=== PATIENT | female | born 1975 | race African-American/Black ===

== ENCOUNTER → 2017-12-24 07:54 | Outpatient (CLI) | payer OTHER, MEDICAID, SELFPAY ==
--- NOTE | 2017-12-24 | DI.MG.S_ITS ---
BILATERAL DIGITAL SCREENING MAMMOGRAM 3D/2D WITH CAD: 12/24/2017 CLINICAL: Routine screening. Comparison is made to exams dated: 12/16/2016 mammogram and 07/24/2015 mammogram - [facility]. The tissue of both breasts is heterogeneously dense. This may lower the sensitivity of mammography. Current study was also evaluated with a Computer Aided Detection (CAD) system. No significant masses, calcifications, or other findings are seen in either breast. There has been no significant interval change. IMPRESSION: NEGATIVE There is no mammographic evidence of malignancy. A 1 year screening mammogram is recommended.(12/25/2018) This exam was interpreted at Station ID: [id number]. NOTE: For mammograms, a report in lay terms will be sent to the patient. Approximately 15% of breast malignancies will not be visualized mammographically. In the management of a palpable breast mass, a negative mammogram must not discourage biopsy of a clinically suspicious lesion. Electronically Signed By: Christian regan/shirley:12/24/2017 11:58:35 copy to: Harjeet Garcia letter sent: Normal Exam ACR BI-RADS Category 1: Negative [id number]
== END ==
DX: Z12.31 Encounter for screening mammogram for malignant neoplasm of breast (principal)
CPT/HCPCS: 77063; 77067

== ENCOUNTER → 2018-04-05 09:56 | Outpatient (CLI) | payer OTHER, MEDICAID, SELFPAY | DX: N95.1 Menopausal and female climacteric states (principal) | CPT/HCPCS: 36415; 83001 ==

== ENCOUNTER → 2018-04-21 09:09 | Outpatient (CLI) | payer OTHER, MEDICAID, SELFPAY ==
[2018-04-21 10:09] LABS: Thyroid Stimulating Hormone 6.17 uIU/mL (0.47-4.68)
== END ==
DX: N92.1 Excessive and frequent menstruation with irregular cycle (principal)
CPT/HCPCS: 36415; 84443

== ENCOUNTER → 2018-07-09 11:51 | Outpatient (CLI) | payer OTHER, MEDICAID, SELFPAY ==
[2018-07-09 13:24] LABS: Free T4, Direct Thyroxine 1.06 ng/dL (0.78-2.19)
[2018-07-09 13:38] LABS: Thyroid Stimulating Hormone 1.09 uIU/mL (0.47-4.68)
== END ==
DX: E03.9 Hypothyroidism, unspecified (principal)
CPT/HCPCS: 36415; 84439; 84443

== ENCOUNTER → 2019-01-06 08:18 | Outpatient (CLI) | payer OTHER, MEDICAID, SELFPAY ==
--- NOTE | 2019-01-06 | DI.MG.S_ITS ---
BILATERAL DIGITAL SCREENING MAMMOGRAM 3D/2D WITH CAD: 01/06/2019 CLINICAL: Routine screening. Comparison is made to exams dated: 12/24/2017 mammogram, 12/16/2016 mammogram, and 07/24/2015 mammogram - [facility]. The tissue of both breasts is heterogeneously dense. This may lower the sensitivity of mammography. Current study was also evaluated with a Computer Aided Detection (CAD) system. No significant masses, calcifications, or other findings are seen in either breast. There has been no significant interval change. IMPRESSION: NEGATIVE There is no mammographic evidence of malignancy. A 1 year screening mammogram is recommended. This exam was interpreted at Station ID: [id number]. NOTE: For mammograms, a report in lay terms will be sent to the patient. Approximately 15% of breast malignancies will not be visualized mammographically. In the management of a palpable breast mass, a negative mammogram must not discourage biopsy of a clinically suspicious lesion. Electronically Signed By: Kiley robbins/shirley:01/06/2019 09:10:21 copy to: TOY TAMAYO letter sent: Normal Exam ACR BI-RADS Category 1: Negative [id number]
== END ==
PROVIDERS: PCP Family Medicine
DX: Z12.31 Encounter for screening mammogram for malignant neoplasm of breast (principal)
CPT/HCPCS: 77063; 77067

== ENCOUNTER → 2019-03-29 11:23 | Outpatient (CLI) | payer OTHER, MEDICAID, SELFPAY ==
[2019-03-29 12:37] LABS: Thyroid Stimulating Hormone 0.23 uIU/mL (0.47-4.68)
== END ==
PROVIDERS: Family Provider Family Medicine; PCP Family Medicine
DX: N91.2 Amenorrhea, unspecified (principal)
CPT/HCPCS: 36415; 84443

== ENCOUNTER → 2019-04-11 09:41 | Outpatient (CLI) | payer OTHER, MEDICAID, SELFPAY ==
[2019-04-11 10:51] LABS: Add Manual Diff / Slide Review NO; Basophils Absolute Auto 0 /uL (0-100); Basophils Percent Auto 1.1 % (0-2); Eosinophils Absolute Auto 100 /uL (0-450); Eosinophils Percent Auto 1.3 % (2-4); Hematocrit 32.2 % (36-46); Hemoglobin 10.5 g/dL (12.0-16.0); Lymphocytes Absolute Auto 900 /uL (1100-4500); Lymphocytes Percent Auto 22.3 % (25-40); Mean Corpuscular HGB Conc 32.6 % (30-36); Mean Corpuscular Hemoglobin 26.3 PG (26-34); Mean Corpuscular Volume 80.6 fL (80-100); Monocytes Absolute Auto 300 /uL (0-900); Neutrophils Absolute Auto 2600 /uL (1500-7000); Neutrophils Percent Auto 67.3 % (50-75); Platelet Count 359 X10^3/uL (150-400); Red Blood Cell Count 3.99 X10^6/uL (4.0-5.2); Red Cell Distribution Width 15.9 % (11.6-14.8); White Blood Cell Count 3.9 X10^3/uL (4.5-11.0)
[2019-04-11 11:38] LABS: Free T3, Triiodothyronine Free 2.75 pg/mL (2.77-5.27)
[2019-04-11 11:39] LABS: Free T4, Direct Thyroxine 0.78 ng/dL (0.78-2.19)
[2019-04-11 11:47] LABS: Ferritin 5.5 ng/mL (6.27-137)
== END ==
PROVIDERS: Family Provider Family Medicine; PCP Family Medicine
DX: E03.9 Hypothyroidism, unspecified (principal); N92.1 Excessive and frequent menstruation with irregular cycle
CPT/HCPCS: 36415; 82728; 84439; 84481; 85025

== ENCOUNTER → 2019-05-07 11:53 | Outpatient (CLI) | payer OTHER, MEDICAID, SELFPAY ==
[2019-05-07 13:03] LABS: Alanine Aminotransferase 13 IU/L (<35); Albumin 4.4 g/dL (3.5-5.0); Albumin Globulin Ratio 1.4 (1.0-2.8); Alkaline Phosphatase 56 U/L (38-126); Aspartate Aminotransferase 18 IU/L (14-36); Bilirubin Total 0.5 mg/dL (0.2-1.3); Bilirubin Unconjugated 0.6 mg/dL (0.0-1.1); Globulin 3.1 g/dL (1.7-4.1); HEMOLYSIS < 15 (0-50); Total Protein 7.5 g/dL (6.3-8.2)
== END ==
PROVIDERS: Family Provider Family Medicine; PCP Family Medicine; Referring Provider Family Medicine; Visit Provider Family Medicine
DX: R10.13 Epigastric pain (principal)
CPT/HCPCS: 36415; 80076

== ENCOUNTER → 2019-05-14 11:47 | Outpatient (CLI) | payer OTHER, MEDICAID, SELFPAY ==
[2019-05-14 12:00] LABS: Bacteria Urine None Seen; RBC Urine None Seen (0-5/HPF); WBC Urine None Seen (0-5/HPF)
[2019-05-14 12:23] LABS: Appearance Urine UA CLEAR; Bilirubin Urine UA NEGATIVE (NEGATIVE); Color Urine UA YELLOW; Glucose Urine UA NEGATIVE (Negative); Ketones Urine UA NEGATIVE (NEGATIVE); Leukocyte Esterase Urine UA NEGATIVE (NEGATIVE); Nitrite Urine UA NEGATIVE (Negative); Occult Blood Urine UA NEGATIVE (Negative); Protein Urine UA NEGATIVE (Negative); Urobilinogen Urine UA 0.2 E.U./dL (0.2)
[2019-05-14 12:37] LABS: Culture Indicated Urine Cult Not Indicated; Urine Comments Microscopic Normal
== END ==
PROVIDERS: Family Provider Family Medicine; PCP Family Medicine; Referring Provider Family Medicine; Visit Provider Family Medicine
DX: R35.0 Frequency of micturition (principal)
CPT/HCPCS: 81001

== ENCOUNTER → 2019-09-09 07:40 | Outpatient (CLI) | payer OTHER, MEDICAID, SELFPAY ==
[2019-09-09 08:25] LABS: Add Manual Diff / Slide Review NO; Basophils Absolute Auto 0 /uL (0-100); Basophils Percent Auto 0.8 % (0-2); Eosinophils Absolute Auto 100 /uL (0-450); Eosinophils Percent Auto 1.6 % (2-4); Hematocrit 37.2 % (36-46); Hemoglobin 13.2 g/dL (12.0-16.0); Lymphocytes Absolute Auto 1100 /uL (1100-4500); Lymphocytes Percent Auto 27.7 % (25-40); Mean Corpuscular HGB Conc 35.4 % (30-36); Mean Corpuscular Hemoglobin 32.6 PG (26-34); Mean Corpuscular Volume 92.1 fL (80-100); Monocytes Absolute Auto 400 /uL (0-900); Monocytes Percent Auto 10.1 % (3-14); Neutrophils Absolute Auto 2300 /uL (1500-7000); Neutrophils Percent Auto 59.8 % (50-75); Platelet Count 281 X10^3/uL (150-400); Red Blood Cell Count 4.04 X10^6/uL (4.0-5.2); Red Cell Distribution Width 12.4 % (11.6-14.8); White Blood Cell Count 3.8 X10^3/uL (4.5-11.0)
[2019-09-09 08:41] LABS: HEMOLYSIS < 15 (0-50); Iron 179 ug/dL (37-170)
[2019-09-09 08:52] LABS: Percent Iron Saturation 66 % (15-50); Total Iron Binding Capacity 273 ug/dL (265-497); Transferrin 208 mg/dL (206-381)
[2019-09-09 09:09] LABS: Thyroid Stimulating Hormone 2.51 uIU/mL (0.47-4.68)
[2019-09-09 09:49] LABS: Ferritin 134 ng/mL (6-137)
== END ==
PROVIDERS: Physician Assistant; Family Provider Family Medicine; PCP Family Medicine
DX: N95.1 Menopausal and female climacteric states (principal); E03.9 Hypothyroidism, unspecified; L65.9 Nonscarring hair loss, unspecified
CPT/HCPCS: 36415; 82728; 83001; 83540; 83550; 84443; 85025

== ENCOUNTER → 2020-02-20 06:55 | Outpatient (CLI) | payer OTHER, MEDICAID, SELFPAY ==
[2020-02-20 08:13] LABS: Add Manual Diff / Slide Review NO; Basophils Absolute Auto 0 /uL (0-100); Basophils Percent Auto 0.8 % (0-2); Eosinophils Absolute Auto 100 /uL (0-450); Eosinophils Percent Auto 1.6 % (2-4); Hematocrit 38.3 % (36-46); Lymphocytes Absolute Auto 1200 /uL (1100-4500); Lymphocytes Percent Auto 27.3 % (25-40); Mean Corpuscular HGB Conc 33.9 % (30-36); Mean Corpuscular Hemoglobin 31.4 PG (26-34); Mean Corpuscular Volume 92.6 fL (80-100); Monocytes Absolute Auto 300 /uL (0-900); Monocytes Percent Auto 7.2 % (3-14); Neutrophils Absolute Auto 2800 /uL (1500-7000); Neutrophils Percent Auto 63.1 % (50-75); Platelet Count 309 X10^3/uL (150-400); Red Blood Cell Count 4.13 X10^6/uL (4.0-5.2); Red Cell Distribution Width 12.7 % (11.6-14.8); White Blood Cell Count 4.4 X10^3/uL (4.5-11.0)
[2020-02-20 08:31] LABS: HEMOLYSIS < 15 (0-50); Iron 95 ug/dL (37-170)
[2020-02-20 08:32] LABS: Alanine Aminotransferase 21 IU/L (<35); Albumin 4.1 g/dL (3.5-5.0); Albumin Globulin Ratio 1.2 (1.0-2.8); Alkaline Phosphatase 66 U/L (38-126); Aspartate Aminotransferase 18 IU/L (14-36); BUN Creatinine Ratio 19.1 (6-22); Bilirubin Total 0.7 mg/dL (0.2-1.3); Blood Urea Nitrogen 13 mg/dL (7-17); Carbon Dioxide 30 mmol/L (22-32); Chloride 103 mmol/L (98-107); Estimated Glomerular Filt Rate > 60.0 mL/min (>60); Globulin 3.3 g/dL (1.7-4.1); Glucose 96 mg/dL (70-100); HEMOLYSIS < 15 (0-50); Potassium 3.9 mmol/L (3.4-5.1); Sodium 136 mmol/L (137-145); Total Protein 7.4 g/dL (6.3-8.2)
[2020-02-20 08:42] LABS: Percent Iron Saturation 26 % (15-50); Total Iron Binding Capacity 363 ug/dL (265-497); Transferrin 278 mg/dL (206-381)
[2020-02-20 08:47] LABS: Free T4, Direct Thyroxine 0.95 ng/dL (0.78-2.19)
[2020-02-20 09:06] LABS: Ferritin 13 ng/mL (6-137)
[2020-02-21 07:07] LABS: Thyroid Peroxidase Antibodies 14 IU/mL (0-34); Triiodothyronine T3 Total 146 ng/dL (71-180)
[2020-02-23 13:12] LABS: Estrogen 87 pg/mL (.)
[2020-02-24 05:40] LABS: Triiodothyronine T3 Reverse 13.3 ng/dL (9.2-24.1)
== END ==
PROVIDERS: Family Provider Family Medicine; PCP Family Medicine; Referring Provider Family Medicine; Visit Provider Family Medicine
DX: E03.9 Hypothyroidism, unspecified (principal); R53.83 Other fatigue; D50.9 Iron deficiency anemia, unspecified
CPT/HCPCS: 36415; 80053; 82672; 82728; 83001; 83540; 83550; 84439; 84443; 84480; 84482; 85025; 86376

== ENCOUNTER → 2020-08-04 07:59 | Outpatient (CLI) | payer OTHER, MEDICAID, SELFPAY ==
[2020-08-04 09:41] LABS: C-Reactive Protein Quant < 0.5 mg/dL (<1.0); Cholesterol 164 mg/dL (140-199); HDL Cholesterol 51 mg/dL (40-60); LDL Cholesterol Calculated 99 mg/dL (<100); Triglycerides 72 mg/dL (35-150)
[2020-08-07 17:36] LABS: Lipoprotein (a) 167.8 nmol/L (<75.0)
== END ==
PROVIDERS: Family Provider Family Medicine; PCP Family Medicine; Referring Provider Internal Medicine Interventional Cardiology; Visit Provider Internal Medicine Interventional Cardiology
DX: Z82.49 Family history of ischemic heart disease and other diseases of the circulatory system (principal)
CPT/HCPCS: 36415; 80061; 83695; 86140

== ENCOUNTER → 2020-09-19 07:13 | Outpatient (CLI) | payer OTHER, MEDICAID, SELFPAY ==
--- NOTE | 2020-09-19 07:16 | DI.US.S_ITS ---
PROCEDURE: US PELVIC COMPLETE INDICATIONS: DUB TECHNIQUE: Real-time scanning was performed of the pelvic organs, with image documentation. Additional endovaginal scanning was necessary due to incomplete visualization of the adnexal and endometrial structures by transabdominal scanning. COMPARISON: [facility], , PELVIC COMPLETE, 04/26/2019, 14:16. [facility], , PELVIC COMPLETE, 03/29/2019, 11:15. FINDINGS: Uterus: Uterus is anteverted and normal in size at 5.2 x 7.8 x 11.0 cm. The endometrium measures 14.2 mm in combined thickness. There is a right-sided intramural fibroid measuring 1.5 x 1.8 x 2.0 cm. The cervix appears normal. Ovaries: The left ovary could not be located but the right ovary appears normal measuring 2.2 x 1.2 x 1.4 cm. Other: No pathologic free abdominal or pelvic fluid. IMPRESSION: Normal appearing uterus except for single 2.0 cm maximal dimension fibroid. Nonvisualization of the left ovary, normal appearance of the right ovary. The left ovary could not be seen due bowel gas. Dictated by: Zaid Calzada M.D. on 09/19/2020 at 12:38 Approved by: Zaid Calzada M.D. on 09/19/2020 at 12:40
== END ==
PROVIDERS: Family Provider Family Medicine; PCP Family Medicine; Referring Provider Obstetrics & Gynecology; Visit Provider Obstetrics & Gynecology
DX: N92.0 Excessive and frequent menstruation with regular cycle (principal); N92.1 Excessive and frequent menstruation with irregular cycle; D25.1 Intramural leiomyoma of uterus
CPT/HCPCS: 36415; 76830; 76856; 83001; 83002

== ENCOUNTER → 2022-01-31 11:21 | Outpatient (CLI) | payer OTHER, MEDICAID, SELFPAY ==
[2022-01-31 12:00] LABS: Hematocrit 32.9 % (36-46); Hemoglobin 11.4 g/dL (12.0-16.0)
== END ==
PROVIDERS: Family Provider Family Medicine; PCP Family Medicine; Referring Provider Obstetrics & Gynecology; Visit Provider Obstetrics & Gynecology
DX: D64.9 Anemia, unspecified (principal)
CPT/HCPCS: 36415; 85014; 85018

== ENCOUNTER 2023-07-02 12:24 | Emergency (ER) | payer OTHER, MEDICAID, SELFPAY ==
[2023-07-02 12:41] VITALS: BP 144/86; PULSE 85; RESP 16; TEMP 36.9; O2SAT 100; BMI 28.3
--- NOTE | 2023-07-02 12:46 | DI.RAD.S_ITS ---
PROCEDURE: XR CHEST 1V INDICATIONS: Shortness of breath TECHNIQUE: One view of the chest was acquired. COMPARISON: None. FINDINGS: Surgical changes and devices: None. Lungs and pleura: Lungs are clear. No pleural effusions or pneumothorax. Mediastinum: Mediastinal contours appear normal. Heart size is normal. Bones and chest wall: No suspicious bony lesions. Overlying soft tissues appear unremarkable. IMPRESSION: No acute cardiopulmonary abnormality is seen. Dictated by: Nabil Duran M.D. on 07/02/2023 at 13:30 Approved by: Nabil Duran M.D. on 07/02/2023 at 13:31
[2023-07-02 12:58] LABS: Add Manual Diff / Slide Review NO; Basophils Absolute Auto 0 /uL (0-100); Basophils Percent Auto 0.6 % (0-2); Eosinophils Absolute Auto 0 /uL (0-450); Eosinophils Percent Auto 0.4 % (2-4); Hemoglobin 11.2 g/dL (12.0-16.0); Lymphocytes Absolute Auto 2400 /uL (1100-4500); Lymphocytes Percent Auto 28.2 % (25-40); Mean Corpuscular Hemoglobin 31.5 PG (26-34); Mean Corpuscular Volume 92.6 fL (80-100); Monocytes Absolute Auto 500 /uL (0-900); Monocytes Percent Auto 6.3 % (3-14); Neutrophils Absolute Auto 5400 /uL (1500-7000); Neutrophils Percent Auto 64.5 % (50-75); Platelet Count 346 X10^3/uL (150-400); Red Blood Cell Count 3.56 X10^6/uL (4.0-5.2); Red Cell Distribution Width 13.3 % (11.6-14.8); White Blood Cell Count 8.4 X10^3/uL (4.5-11.0)
[2023-07-02 13:00] LABS: INR 1.5 (0.9-1.3); Prothrombin Time 16.9 SECONDS (9.4-12.5)
[2023-07-02 13:08] LABS: Lactate (Lactic Acid) 3.6 mmol/L (0.7-2.1)
[2023-07-02 13:09] LABS: Alanine Aminotransferase 25 IU/L (<35); Albumin 4.4 g/dL (3.5-5.0); Albumin Globulin Ratio 1.4 (1.0-2.8); Alkaline Phosphatase 78 U/L (38-126); Aspartate Aminotransferase 25 IU/L (14-36); BUN Creatinine Ratio 14.7 (6-22); Bilirubin Total 0.6 mg/dL (0.2-1.3); Blood Urea Nitrogen 10 mg/dL (7-17); Calcium 9.5 mg/dL (8.4-10.2); Carbon Dioxide 24 mmol/L (22-32); Chloride 107 mmol/L (98-107); Estimated Glomerular Filt Rate > 60 mL/min (>60); Globulin 3.2 g/dL (1.7-4.1); Glucose 143 mg/dL (70-100); HEMOLYSIS < 15 (0-50); Potassium 3.1 mmol/L (3.4-5.1); Sodium 138 mmol/L (137-145); Total Protein 7.6 g/dL (6.3-8.2)
[2023-07-02 13:22] LABS: Troponin I < 0.012 ng/mL (0.01-0.034)
--- NOTE | 2023-07-02 13:56 | ED.SOB ---
HPI - SOB/Dyspnea General Chief Complaint: Shortness of Breath/Dyspnea Stated Complaint: Diff breathing,pt dx with PE yesterday. Time Seen by Provider: 07/02/23 12:47 Source: patient and family Mode of arrival: EMS Limitations: no limitations History of Present Illness HPI Narrative: 39-year-old female with history of asthma, hypothyroidism, chronic anemia with seizure disorder as a child no longer requiring medications with recent diagnosis of pulmonary emboli yesterday at [facility] in the emergency department. Patient was discharged home on Eliquis. She has taken dose yesterday as well as this morning. Patient presents with complaint of feeling worse. She states for about a month and a half she has felt unwell, she has a history of chronic anemia was given a hormone patch and iron supplementation through the IV. Patient states about 2 weeks ago is when this occurred started to have vaginal bleeding. Patient states in the last several days started having left arm pain and tingling in his that went up into her chest. She felt like her arms and legs felt like it was hard to walk around she had decreased energy. She states it was worsening yesterday she went to the emergency department and was evaluated and diagnosed with pulmonary emboli. Patient states she had a lot of difficulty sleeping last night felt very anxious, she felt like her heart was pounding loudly in her ears, felt a little lightheaded but did not have any syncope. She describes some left chest discomfort, tingling down her arm as well as cramping of her hands today. Patient describes shortness of breath. She describes nausea and vomiting on and off for the past several weeks. No vomiting. No diarrhea or constipation, no urinary symptoms. She is having some vaginal bleeding which she states has increased in the last 24 hours. Patient states she is on Levoxyl on Eliquis for home medications, she stopped using a hormone patch, she was given a prescription for vaginal estradiol but has not used in the past 2 weeks. She states no prior surgeries. Has allergies to sulfa, fluconazole, ciprofloxacin and topiramate. No tobacco, no alcohol, no recreational drugs. Patient sees primary care at [facility] at [facility]. Related Data Home Medications Medication Instructions Recorded Confirmed Vit B Complex/Vit C/Vit E/Zn 1 tab PO ##0 01/29/12 11/22/20 (#ZINC B.E.C.) Iron (#CHEW-IRON) 27 mg PO ##0 03/19/12 11/22/20 Lysine (#LYSINE) 2 tabs PO QDAY ##0 03/19/12 11/22/20 VITAMIN D (Vitamin D3) 1,000 unit PO QDAY ##0 03/22/12 11/22/20 ascorbic acid (vitamin C) 500 mg 500 mg PO QDAY ##0 03/22/12 11/22/20 tablet qhskanon-jtl-pojo-FA-Ca carb-vit K 1 tab PO DAILY 04/05/18 11/22/20 18 mg iron-400 mcg-500 mg tablet (Women's Multivitamin) thyroid supplement PO 03/29/19 11/22/20 diphenhydramine HCl 12.5 mg/5 mL 12.5 mg PO BEDTIME 04/26/19 11/22/20 oral liquid (Benadryl Allergy) elderberry fruit 0.7 gram-honey 3 ml PO 04/26/19 11/22/20 gram/7.5 mL oral liquid glucosamine sulfate 500 mg tablet 500 mg PO BID 04/26/19 11/22/20 (Glucosamine) Previous Rx's Medication Instructions Recorded naproxen sodium 550 mg tablet 550 mg PO TID Menometrorrhagia #20 04/05/18 tabs metronidazole 0.75 % (37.5 mg/5 1 applicator vaginal BEDTIME 7 03/29/19 gram) vaginal gel (Metrogel days #70 grams Vaginal) progesterone micronized 100 mg 100 mg PO BEDTIME #30 caps 10/02/20 capsule citalopram 20 mg tablet 20 mg PO DAILY #30 tabs 06/11/22 Allergies Allergy/AdvReac Type Severity Reaction Status Date / Time ciprofloxacin [CIPROFLOXACIN] Allergy Unknown Verified 11/22/20 08:30 fluconazole [FLUCONAZOLE] Allergy Unknown Verified 11/22/20 08:30 Sulfa (Sulfonamide Allergy Unknown Verified 11/22/20 08:30 Antibiotics) [SULFA (SULFONAMIDE ANTIBIOTICS)] Review of Systems Review of Systems ROS Unobtainable: All systems reviewed & are unremarkable except as noted in HPI and below Patient History Medical History Vaginal odor Foot pain, bilateral Family History Child Age: 30 Autism Digestive problems Father Age: 77 Diabetes mellitus Mother Age: 83 Heart disease High cholesterol Low blood pressure Anemia Social History Smoking Status: Never smoker Smoking Status: Never smoker alcohol intake frequency: holidays/special occasions only Substance Use Type: does not use Exam Narrative Exam Narrative: GEN: well nourished female, alert and oriented x 3, patient appears to be in mild distress. Patient does appear anxious. HEENT: Atraumatic, pupils are equal round reactive to light, extraocular movements are intact, nares are clear, there is no conjunctival pallor. Throat is clear without any exudates, erythema, tonsillar enlargement or uvular deviation HEART: Regular rate and rhythm without murmur, clicks, rubs. Pulses are equal in upper and lower extremities LUNGS:Lungs clear to auscultation, no wheezes, rales, crackles, chest moves symmetrically, no JVD. No edema bilateral lower extremities. ABD:bowel sounds normal, soft, non-tender, no guarding, rebound, rigidity, no masses noted, no hepatosplenomegaly :No CVA tenderness MSCL: Non-tender, no muscle atrophy, muscles strength 5/5 upper and lower extremities, full range of motion, normal gait NEURO:CN 2-12 intact, sensation normal SKIN: Rash, erythema or other skin changes noted. Initial Vital Signs Initial Vital Signs: Vital Signs Temperature 98.5 F 07/02/23 12:41 Pulse Rate 85 07/02/23 12:41 Respiratory Rate 16 07/02/23 12:41 Blood Pressure 144/86 H 07/02/23 12:41 Pulse Oximetry 100 07/02/23 12:41 Oxygen Delivery Method Room Air 07/02/23 12:41 Course Orders Ordered: ED Orders 07/02/23 12:37 BNP [NT-proBNP (BNP-Adult 18+)] Stat Complete Blood Count AUTO DIFF Stat Comprehensive Metabolic Panel Stat Lactate (Lactic Acid) Stat Prothrombin Time INR Stat Troponin I Stat 07/02/23 12:46 XR chest 1V Stat EKG-12 Lead Stat Measure peak expiratory flow ONCE RT Consult Eval and Treat NOW 07/02/23 14:17 CT angio chest PE protocol Stat 07/02/23 14:52 Trop I [Troponin I] Stat Discontinued Medications Acetaminophen (Acetaminophen 325 Mg Tablet) 975 mg PO NOW ONE Stop: 07/02/23 14:18 Last Admin: 07/02/23 14:28 Dose: 975 mg Documented By: RYAN Potassium Chloride (Potassium Chloride 20 Meq Tab) 40 meq PO NOW ONE Stop: 07/02/23 14:18 Last Admin: 07/02/23 14:28 Dose: 40 meq Documented By: RYAN Vital Signs Vital signs: Vital Signs - 8 hr 07/02/23 12:41 07/02/23 15:30 07/02/23 16:00 Temperature 98.5 F Pulse Rate 85 78 77 Respiratory Rate 16 19 18 Blood Pressure 144/86 H Pulse Oximetry 100 99 100 Oxygen Delivery Method Room Air 07/02/23 16:36 Temperature 98.4 F Pulse Rate 87 Respiratory Rate 16 Blood Pressure 123/65 Pulse Oximetry 100 Oxygen Delivery Method MDM - SOB/Dyspnea Lab Data 07/02/23 12:37 07/02/23 12:37 Labs: Lab Results 07/02/23 07/02/23 07/02/23 Range/Units 12:37 12:37 14:52 WBC 8.4 (4.5-11.0) X10^3/uL RBC 3.56 L (4.0-5.2) X10^6/uL Hgb 11.2 L (12.0-16.0) g/dL Hct 33.0 L (36-46) % MCV 92.6 (80-100) fL MCH 31.5 (26-34) PG MCHC 34.0 (30-36) % RDW 13.3 (11.6-14.8) % Plt Count 346 (150-400) X10^3/uL Neut % (Auto) 64.5 (50-75) % Lymph % (Auto) 28.2 (25-40) % [place] % (Auto) 6.3 (3-14) % Eos % (Auto) 0.4 L (2-4) % Baso % (Auto) 0.6 (0-2) % Neut # (Auto) 5400 (1142-9704) /uL Lymph # (Auto) 2400 (6398-2643) /uL [place] # (Auto) 500 (0-900) /uL Eos # (Auto) 0 (0-450) /uL Baso # (Auto) 0 (0-100) /uL PT 16.9 H (9.4-12.5) SECONDS INR 1.5 H (0.9-1.3) Sodium 138 (137-145) mmol/L Potassium 3.1 L (3.4-5.1) mmol/L Chloride 107 (98-107) mmol/L Carbon Dioxide 24 (22-32) mmol/L BUN 10 (7-17) mg/dL Creatinine 0.68 (0.52-1.04) mg/dL Estimated GFR > 60 (>60) mL/min BUN/Creatinine Ratio 14.7 (6-22) Glucose 143 H (70-100) mg/dL Lactate 3.6 H 1.1 (0.7-2.1) mmol/L Calcium 9.5 (8.4-10.2) mg/dL Total Bilirubin 0.6 (0.2-1.3) mg/dL AST 25 (14-36) IU/L ALT 25 (<35) IU/L Alkaline Phosphatase 78 (38-126) U/L Troponin I < 0.012 < 0.012 (0.01-0.034) ng/mL NT-Pro-B Natriuret Pep Cancelled < 20 Total Protein 7.6 (6.3-8.2) g/dL Albumin 4.4 (3.5-5.0) g/dL Globulin 3.2 (1.7-4.1) g/dL Albumin/Globulin Ratio 1.4 (1.0-2.8) Imaging Data Chest x-ray: Radiologist's Impression: [address] [address] XRay Report Signed Patient: Maritza Moser MR#: [id number] : 1975 Acct:[id number] Age/Sex: 47 / F Date of Service: 07/02/23 Loc: ED Accession Number: [id number] Procedure: XR chest 1V Ordering Provider: Christine Napier D.O. PROCEDURE: XR CHEST 1V INDICATIONS: Shortness of breath TECHNIQUE: One view of the chest was acquired. COMPARISON: None. FINDINGS: Surgical changes and devices: None. Lungs and pleura: Lungs are clear. No pleural effusions or pneumothorax. Mediastinum: Mediastinal contours appear normal. Heart size is normal. Bones and chest wall: No suspicious bony lesions. Overlying soft tissues appear unremarkable. IMPRESSION: No acute cardiopulmonary abnormality is seen. Dictated by: Nabil Duran M.D. on 07/02/2023 at 13:30 Approved by: Nabil Duran M.D. on 07/02/2023 at 13:31 CT scan - chest: Radiologist's Impression: Close Chest CTA (Signed) Bennett Peña - 07/02/23 Chest X-Ray (Signed) Nabil Duran - 07/02/23 Pelvis Ultrasound (Signed) Zaid Calzada - 09/19/20 Mammogram Screening (Signed) Kiley Scott - 01/06/19 DI Result CC 12/17/18 Mammogram Screening (Signed) Christian Flores - 12/24/17 [place] [address] CT Scan Report Signed Patient: Maritza Moser MR#: [id number] : 1975 Acct:[id number] Age/Sex: 47 / F Date of Service: 07/02/23 Loc: ED Accession Number: [id number] Procedure: CT angio chest PE protocol Ordering Provider: Christine Napier D.O. PROCEDURE: CT ANGIO CHEST PE PROTOCOL INDICATIONS: sob, cp, dx PE yesterday at [facility] TECHNIQUE: After the administration of intravenous contrast, 2 mm thick sections acquired from the pulmonary apices to the posterior costophrenic angles. 3-dimensional maximum intensity projection (MIP) coronal and sagittal reformats were then acquired through the thorax. For radiation dose reduction, the following was used: automated exposure control, adjustment of mA and/or kV according to patient size. COMPARISON: [facility], CT, CT ANGIO CHEST PE, 07/01/2023, 17:47. FINDINGS: Image quality: Diagnostic. Pulmonary arteries: Unchanged. Again noted is a small segmental right lower lobe pulmonary embolus. No additional acute pulmonary emboli. Lower Neck: No enlarged lymph nodes. Thyroid: No thyroid nodules which require sonographic follow up, per consensus guidelines. Axillae: No enlarged lymph nodes. Chest Wall: Unremarkable. Bones: Unremarkable. Lungs and Pleura: No pneumothorax or pleural effusions. No consolidation or suspicious nodules. Heart: Heart size is normal. No pericardial effusion. Thoracic Vessels: No aortic aneurysm. Mediastinum and Joyce: No enlarged lymph nodes. Esophagus: No wall thickening. No hiatal hernia. Upper Abdomen: Visualized upper abdomen solid organs and bowel loops appear normal. IMPRESSION: Stable findings. Small distal right segmental branch pulmonary embolus. No additional pulmonary emboli have occurred that are identifiable on this study. Lungs are otherwise clear. Dictated by: Bennett Peña M.D. on 07/02/2023 at 15:32 Approved by: Bennett Peña M.D. on 07/02/2023 at 15:36 ECG Data Attestation: I personally reviewed and interpreted this ECG as follows: Interpretation: Sinus rhythm rate 81 SD 176 QRS 82 QTC [address] elevation, 1 mm depression lateral leads no elevation. No S1 Q 3 T3. Patient does not have any priors available at our facility. Patient EKG somewhat poor quality secondary to faxing for her [facility] but overall appears similar to today MDM Narrative Medical decision making narrative: 47-year-old female with recent diagnosis of pulmonary emboli at [facility] who presents with a complaint of increase left-sided chest discomfort that recurred today left arm tingling and numbness, cramping in her hands, generalized weakness. No syncope. Chest pain is not present currently she does note that she feels very anxious. She was able to take her Eliquis today and fill it without any issues and had a dose last night as well. Patient was recently started on estrogen patch which may have increased her risk she does not have a lot of other known risk factors for pulmonary emboli. Labs show hemoglobin of 11.2 was 11.4 in 2021, patient's white count 8.4 with platelets of 346. INR is 1.5 likely elevated secondary to Eliquis. CMP shows a potassium of 3.1 this is down from yesterday at 3.5, creatinine is appropriate 0.68, sodium is 138 with otherwise normal electrolytes besides potassium, patient's lactate is 3.6 initially, repeat has improved to 1.1 Troponin was negative, troponin was repeated at 2nd hour and is negative. BNP is less than 20 Chest x-ray shows no acute change. CT angio chest yesterday at [facility] shows several filling defects in the distal segmental branches predominantly right lower lobe no right heart strain, no enlarged lymph nodes otherwise normal heart size no pericardial effusion. Lungs were otherwise clear. Patient has also had abdominal ultrasound which showed hyperechoic liver texture somewhat coarse consistent with fatty infiltrate, no gallbladder disease no renal now mildly reason for right upper quadrant pain. Patient also had bilateral DVT studies which showed no DVTs in bilateral extremities. CT angio was repeated today, shows distal segmental branch right sided PE without any new pulmonary emboli. PESI score is 48, class 1. Patient had ambulatory pulse ox without any tachycardia or hypoxia. Patient is felt safe for discharge. She feels improved here in the department. Discussed needs follow-up to make sure potassium is appropriate, that she is continuing to improve. She did note some vaginal bleeding that started before she was on Eliquis, has had a little bit today if persisting would need rechecked. She had stopped her estrogen patch 3 or 4 days ago so likely secondary to this. Discussed return precautions all questions answered. Discharge Plan Departure Patient Disposition: Home Clinical Impression: Single subsegmental pulmonary embolism without acute cor pulmonale Activity Restrictions/Additional Instructions: Your workup today does show a distal right segmental branch pulmonary embolus or blood clot, there are no new blood clots appreciated on your CT today compared to yesterday. Your lab workup not show any changes or stress to your heart. Your labs did show low potassium, this was replaced orally. I would recommend having a recheck in the next 24-48 hours. Your labs show anemia but stable compared to your prior labs. Continue your Eliquis as prescribed. Do not use your hormone replacement therapy or estrogen. It is recommended that you follow up with your physician for further workup. Please return for, new or worsening symptoms, increasing chest pain or shortness of breath, passing out, coughing up blood, vomiting, new swelling of extremities or other new or concerning changes. Prescriptions: No Action Vit B Complex/Vit C/Vit E/Zn (#ZINC B.E.C.) 1 tab PO Qty: 0 Iron (#CHEW-IRON) 27 mg PO Qty: 0 Lysine (#LYSINE) 2 tabs PO QDAY Qty: 0 ascorbic acid (vitamin C) 500 MG tablet 500 mg PO QDAY Qty: 0 VITAMIN D (Vitamin D3) 1,000 unit PO QDAY Qty: 0 metronidazole [Metrogel Vaginal] 0.75 % gel 1 applicator VAG BEDTIME 7 Days Qty: 70 1RF progesterone micronized 100 mg capsule 100 mg PO BEDTIME Qty: 30 12RF ld-mg-vssd-FA-Ca carb-vit K [Women's Multivitamin] 18 mg iron-400 mcg-500 mg tablet 1 tab PO DAILY naproxen sodium 550 mg tablet 550 mg PO TID Qty: 20 3RF citalopram 20 mg tablet 20 mg PO DAILY Qty: 30 12RF thyroid supplement PO glucosamine sulfate [Glucosamine] 500 mg tablet 500 mg PO BID diphenhydramine HCl [Benadryl Allergy] 12.5 mg/5 mL liquid 12.5 mg PO BEDTIME elderberry fruit-honey 0.7-3 gram/7.5 mL liquid PO Referrals: Steven Clark DO [Primary Care Provider] - Stand Alone Forms: Patient Portal/API
--- NOTE | 2023-07-02 14:17 | DI.CT.S_ITS ---
PROCEDURE: CT ANGIO CHEST PE PROTOCOL INDICATIONS: sob, cp, dx PE yesterday at [facility] TECHNIQUE: After the administration of intravenous contrast, 2 mm thick sections acquired from the pulmonary apices to the posterior costophrenic angles. 3-dimensional maximum intensity projection (MIP) coronal and sagittal reformats were then acquired through the thorax. For radiation dose reduction, the following was used: automated exposure control, adjustment of mA and/or kV according to patient size. COMPARISON: [facility], CT, CT ANGIO CHEST PE, 07/01/2023, 17:47. FINDINGS: Image quality: Diagnostic. Pulmonary arteries: Unchanged. Again noted is a small segmental right lower lobe pulmonary embolus. No additional acute pulmonary emboli. Lower Neck: No enlarged lymph nodes. Thyroid: No thyroid nodules which require sonographic follow up, per consensus guidelines. Axillae: No enlarged lymph nodes. Chest Wall: Unremarkable. Bones: Unremarkable. Lungs and Pleura: No pneumothorax or pleural effusions. No consolidation or suspicious nodules. Heart: Heart size is normal. No pericardial effusion. Thoracic Vessels: No aortic aneurysm. Mediastinum and Joyce: No enlarged lymph nodes. Esophagus: No wall thickening. No hiatal hernia. Upper Abdomen: Visualized upper abdomen solid organs and bowel loops appear normal. IMPRESSION: Stable findings. Small distal right segmental branch pulmonary embolus. No additional pulmonary emboli have occurred that are identifiable on this study. Lungs are otherwise clear. Dictated by: Bennett Peña M.D. on 07/02/2023 at 15:32 Approved by: Bennett Peña M.D. on 07/02/2023 at 15:36
[2023-07-02] MEDS: ACETAMINOPHEN 325 MG TABLET 975 MG PO (14:28)
[2023-07-02] MEDS: POTASSIUM CHLORIDE 20 MEQ TAB 40 MEQ PO (14:28)
[2023-07-02 14:29] LABS: Reflexed Lactate in 2 Hours Y
[2023-07-02 14:57] LABS: NT-proBNP (BNP-Adult 18+) < 20 pg/mL (<125)
[2023-07-02 15:30] VITALS: PULSE 78; RESP 19; O2SAT 99
[2023-07-02 15:50] LABS: Lactate 2HR (Lactic Acid Rflx) 1.1 mmol/L (0.7-2.1)
[2023-07-02 16:00] VITALS: PULSE 77; RESP 18; O2SAT 100
[2023-07-02 16:01] LABS: Troponin I < 0.012 ng/mL (0.01-0.034)
--- NOTE | 2023-07-02 16:29 | PC.NURSE ---
worsening sob; numbness/tingling in arms and legs.
[2023-07-02 16:36] VITALS: BP 123/65; PULSE 87; RESP 16; TEMP 36.9; O2SAT 100
--- NOTE | 2023-07-02 16:47 | PC.NURSE ---
REASSESS; NO CHANGE. PT STATES SHE HAS NOT MISSED A DOSE OF BLOOD THINNER
== END 2023-07-02 16:48 | disposition home or self-care (01) ==
PROVIDERS: Emergency Provider Emergency Medicine; Family Provider Family Medicine; PCP Family Medicine
DX: I26.93 Single subsegmental thrombotic pulmonary embolism without acute cor pulmonale (principal); Z79.01 Long term (current) use of anticoagulants
CPT/HCPCS: 71045; 71275; 80053; 83605; 83880; 84484; 85025; 85610; 93005; 93010; 99283; 99284

== ENCOUNTER 2023-09-18 09:09 | Emergency (ER) | payer OTHER, MEDICAID, SELFPAY ==
[2023-09-18] VITALS (8 sets, daily range): BP systolic 112–148; BP diastolic 63–91; PULSE 69–85; RESP 17–27; TEMP 37; O2SAT 95–99; BMI 28.7
--- NOTE | 2023-09-18 09:25 | EKG_ITS ---
[address] [address] Test Date: 2023-09-18 Pat Name: Maritza Moser Department: Room: Gender: Female Annual Giving Officer: BRISA : 1975 Requested By: Order Number: [id number] Reading MD: Dionicio Armendariz Measurements Intervals [place] Rate: 80 P: 43 PA: 128 QRS: 30 QRSD: 80 T: 44 QT: 400 QTc: 461 Interpretive Statements Normal sinus rhythm Electronically Signed On 09-20-2023 9:44:14 PDT by Dionicio Armendariz
--- NOTE | 2023-09-18 09:42 | ED.ARRPALP ---
HPI - Arrhythmia/Palpitations General Chief Complaint: Arrhythmia/Palpitations Stated Complaint: heart racing, off meds t-3 Time Seen by Provider: 09/18/23 09:16 Source: patient Mode of arrival: Ambulatory History of Present Illness HPI narrative: Patient is a 47-year-old female. Earlier this year she was diagnosed with a pulmonary embolism. The thought was that this was going to just because she was started on control. She has been on apixaban. She also has quite a bit of anxiety. 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 She has been off of all of her medicines for the past 3 days. She states that yesterday she was somewhat anxious about her procedure today but had no chest pain or shortness of breath. Last evening she felt like she was having episodes of her heart racing. This was associated with some shortness of breath and chest discomfort. She stated that this morning she woke up and was not having those symptoms but was somewhat anxious. She contacted the surgeon's office who canceled her surgery this morning advised she come to the emergency department for evaluation. Here in the ER she denies chest pain, shortness of breath, palpitations. She was still somewhat anxious. She was also having some vague left leg pain last evening that has now resolved. Related Data Home Medications Medication Instructions Recorded Confirmed Vit B Complex/Vit C/Vit E/Zn 1 tab PO ##0 01/29/12 11/22/20 (#ZINC B.E.C.) Iron (#CHEW-IRON) 27 mg PO ##0 03/19/12 11/22/20 Lysine (#LYSINE) 2 tabs PO QDAY ##0 03/19/12 11/22/20 VITAMIN D (Vitamin D3) 1,000 unit PO QDAY ##0 03/22/12 11/22/20 ascorbic acid (vitamin C) 500 mg 500 mg PO QDAY ##0 03/22/12 11/22/20 tablet elrhlaca-nvs-qicq-FA-Ca carb-vit K 1 tab PO DAILY 04/05/18 11/22/20 18 mg iron-400 mcg-500 mg tablet (Women's Multivitamin) diphenhydramine HCl 12.5 mg/5 mL 12.5 mg PO BEDTIME 04/26/19 11/22/20 oral liquid (Benadryl Allergy) elderberry fruit 0.7 gram-honey 3 ml PO 04/26/19 11/22/20 gram/7.5 mL oral liquid glucosamine sulfate 500 mg tablet 500 mg PO BID 04/26/19 11/22/20 (Glucosamine) apixaban 5 mg tablet 5 mg PO BID 09/08/23 09/08/23 levothyroxine 50 mcg tablet 50 mcg PO DAILY 09/08/23 09/08/23 (Levoxyl) minoxidil 2.5 mg tablet 2.5 mg PO DAILY 09/08/23 09/08/23 Previous Rx's Medication Instructions Recorded metronidazole 0.75 % (37.5 mg/5 1 applicator vaginal BEDTIME 7 03/29/19 gram) vaginal gel (Metrogel days #70 grams Vaginal) Allergies Allergy/AdvReac Type Severity Reaction Status Date / Time ciprofloxacin [CIPROFLOXACIN] Allergy Unknown Verified 09/08/23 08:27 fluconazole [FLUCONAZOLE] Allergy Unknown Verified 09/08/23 08:27 Sulfa (Sulfonamide Allergy Unknown Verified 09/08/23 08:27 Antibiotics) [SULFA (SULFONAMIDE ANTIBIOTICS)] Review of Systems Review of Systems Narrative: See HPI Patient History Medical History Pulmonary embolism (07/01/23) Vaginal odor Foot pain, bilateral Family History Child Age: 30 Autism Digestive problems Father Age: 77 Diabetes mellitus Mother Age: 83 Heart disease High cholesterol Low blood pressure Anemia Social History household members: spouse Smoking Status: Never smoker alcohol intake: current Smoking Status: Never smoker alcohol intake frequency: holidays/special occasions only Substance Use Type: does not use Exam Initial Vital Signs Initial Vital Signs: Vital Signs Pulse Rate 84 09/18/23 09:16 Pulse Oximetry 99 09/18/23 09:16 Const General: cooperative, comfortable and No ill appearing HENMT Head: normal to inspection and normocephalic Resp Effort & Inspection: normal respiratory effort Auscultation: clear to auscultation bilaterally Cardio Rate: regular rate Rhythm: regular rhythm GI Inspection: normal to inspection and non-distended Skin General: no rashes or lesions noted Neuro General: patient alert, patient awake and moves all extremities Extrem General: normal to inspection and capillary refill normal Course Orders Ordered: ED Orders 09/18/23 09:18 EKG-12 Lead Stat 09/18/23 09:43 CT angio chest PE protocol Stat 09/18/23 09:55 Complete Blood Count AUTO DIFF Stat Comprehensive Metabolic Panel Stat Lipase Stat Magnesium Stat PTT Partial Thromboplastin Ant Stat Prothrombin Time INR Stat Vital Signs Vital signs: Vital Signs - 8 hr 09/18/23 09:16 09/18/23 09:21 09/18/23 09:28 Temperature 98.6 F Pulse Rate 84 85 Respiratory Rate 22 Blood Pressure 148/91 H 134/77 Pulse Oximetry 99 99 Oxygen Delivery Method Room Air 09/18/23 09:28 09/18/23 09:30 09/18/23 09:30 Temperature Pulse Rate 79 79 Respiratory Rate 25 H 22 Blood Pressure 128/78 Pulse Oximetry 98 95 Oxygen Delivery Method 09/18/23 10:00 09/18/23 10:00 Temperature Pulse Rate 71 Respiratory Rate 27 H Blood Pressure 135/81 Pulse Oximetry 98 Oxygen Delivery Method MDM - Arrhythmia/Palpitations Lab Data Attestation: I reviewed the patient's lab results. 09/18/23 09:55 09/18/23 09:55 Labs: Lab Results 09/18/23 Range/Units 09:55 WBC 7.1 (4.5-11.0) X10^3/uL RBC 4.33 (4.0-5.2) X10^6/uL Hgb 12.8 (12.0-16.0) g/dL Hct 38.8 (36-46) % MCV 89.4 (80-100) fL MCH 29.6 (26-34) PG MCHC 33.2 (30-36) % RDW 13.9 (11.6-14.8) % Plt Count 325 (150-400) X10^3/uL Neut % (Auto) 83.9 H (50-75) % Lymph % (Auto) 10.8 L (25-40) % [place] % (Auto) 4.4 (3-14) % Eos % (Auto) 0.2 L (2-4) % Baso % (Auto) 0.7 (0-2) % Neut # (Auto) 6000 (9179-1336) /uL Lymph # (Auto) 800 L (8354-3911) /uL [place] # (Auto) 300 (0-900) /uL Eos # (Auto) 0 (0-450) /uL Baso # (Auto) 100 (0-100) /uL PT 13.0 H (9.4-12.5) SECONDS INR 1.1 (0.9-1.3) APTT 34 (25.1-36.5) SECONDS Sodium 140 (137-145) mmol/L Potassium 3.4 (3.4-5.1) mmol/L Chloride 108 H (98-107) mmol/L Carbon Dioxide 24 (22-32) mmol/L BUN 9 (7-17) mg/dL Creatinine 0.69 (0.52-1.04) mg/dL Estimated GFR > 60 (>60) mL/min BUN/Creatinine Ratio 13.0 (6-22) Glucose 127 H (70-100) mg/dL Calcium 8.8 (8.4-10.2) mg/dL Magnesium 2.2 (1.6-2.3) mg/dL Total Bilirubin 0.4 (0.2-1.3) mg/dL AST 32 (14-36) IU/L ALT 33 (<35) IU/L Alkaline Phosphatase 73 (38-126) U/L Total Protein 7.8 (6.3-8.2) g/dL Albumin 4.5 (3.5-5.0) g/dL Globulin 3.3 (1.7-4.1) g/dL Albumin/Globulin Ratio 1.4 (1.0-2.8) Lipase 64 (23-300) U/L Imaging Data CT scan - chest: Radiologist's Impresson: PROCEDURE: CT ANGIO CHEST PE PROTOCOL INDICATIONS: Chest pain, shortness of breath, tachycardia TECHNIQUE: After the administration of intravenous contrast, 2 mm thick sections acquired from the pulmonary apices to the posterior costophrenic angles. 3-dimensional maximum intensity projection (MIP) coronal and sagittal reformats were then acquired through the thorax. For radiation dose reduction, the following was used: automated exposure control, adjustment of mA and/or kV according to patient size. COMPARISON: [facility], CT, CT ANGIO CHEST PE PROTOCOL, 07/02/2023, 14:32. FINDINGS: Image quality: Diagnostic. Pulmonary arteries: Pulmonary arteries are normal in size, and demonstrate no intraluminal filling defects to suggest central pulmonary embolism. Lower Neck: No enlarged lymph nodes. Thyroid: No thyroid nodules which require sonographic follow up, per consensus guidelines. Axillae: No enlarged lymph nodes. Chest Wall: Unremarkable. Bones: Unremarkable. Lungs and Pleura: No pneumothorax or pleural effusions. No consolidation or suspicious nodules. Heart: Heart size is normal. No pericardial effusion. Thoracic Vessels: No aortic aneurysm. Mediastinum and Joyce: No enlarged lymph nodes. Esophagus: No wall thickening. No hiatal hernia. Upper Abdomen: Visualized upper abdomen solid organs and bowel loops appear normal. IMPRESSION: No pulmonary embolus. No acute cardiopulmonary process. ECG Data Attestation: I personally reviewed and interpreted this ECG as follows: Interpretation: Sinus rhythm Ventricular rate of 80 Normal axis Normal QRS Normal QTC No ST T wave changes MDM Narrative Medical decision making narrative: After a discussion with the patient we opted to perform a CT scan and lab work. Her potassium today is unremarkable. The CT scan of the chest shows no signs of pulmonary embolism. The rest of her electrolytes are unremarkable. Her exam is unremarkable. Had a discussion with the patient regarding this. Will have her talk with the surgeon who was supposed to do her surgery today to see when they can reschedule. If he was going to be more than 3 days from now that she will restart all of her medications. She was given return precautions. She expressed understanding and agreement. Discharge Plan Departure Patient Disposition: Home Clinical Impression: Palpitations, Anxiety Instructions: DI for Palpitations Activity Restrictions/Additional Instructions: I do recommend that you contact your operative surgeons office today to see when they can reschedule your appointment. If it is going to be more than 3 days from now I would recommend that you restart all of your medications as directed. Contact your primary doctor for follow-up. Return to the emergency department for new symptoms. Prescriptions: No Action Vit B Complex/Vit C/Vit E/Zn (#ZINC B.E.C.) 1 tab PO Qty: 0 Iron (#CHEW-IRON) 27 mg PO Qty: 0 Lysine (#LYSINE) 2 tabs PO QDAY Qty: 0 ascorbic acid (vitamin C) 500 MG tablet 500 mg PO QDAY Qty: 0 VITAMIN D (Vitamin D3) 1,000 unit PO QDAY Qty: 0 metronidazole [Metrogel Vaginal] 0.75 % gel 1 applicator VAG BEDTIME 7 Days Qty: 70 1RF ko-nk-igwg-FA-Ca carb-vit K [Women's Multivitamin] 18 mg iron-400 mcg-500 mg tablet 1 tab PO DAILY glucosamine sulfate [Glucosamine] 500 mg tablet 500 mg PO BID diphenhydramine HCl [Benadryl Allergy] 12.5 mg/5 mL liquid 12.5 mg PO BEDTIME elderberry fruit-honey 0.7-3 gram/7.5 mL liquid PO levothyroxine [Levoxyl] 50 mcg tablet 50 mcg PO DAILY minoxidil 2.5 mg tablet 2.5 mg PO DAILY apixaban 5 mg tablet 5 mg PO BID Referrals: Jesus Blair DO [Primary Care Provider] - Stand Alone Forms: Patient Portal/API
[2023-09-18 10:06] LABS: Add Manual Diff / Slide Review NO; Basophils Absolute Auto 100 /uL (0-100); Basophils Percent Auto 0.7 % (0-2); Eosinophils Absolute Auto 0 /uL (0-450); Eosinophils Percent Auto 0.2 % (2-4); Hematocrit 38.8 % (36-46); Hemoglobin 12.8 g/dL (12.0-16.0); Lymphocytes Absolute Auto 800 /uL (1100-4500); Lymphocytes Percent Auto 10.8 % (25-40); Mean Corpuscular HGB Conc 33.2 % (30-36); Mean Corpuscular Hemoglobin 29.6 PG (26-34); Mean Corpuscular Volume 89.4 fL (80-100); Monocytes Absolute Auto 300 /uL (0-900); Monocytes Percent Auto 4.4 % (3-14); Neutrophils Absolute Auto 6000 /uL (1500-7000); Neutrophils Percent Auto 83.9 % (50-75); Platelet Count 325 X10^3/uL (150-400); Red Blood Cell Count 4.33 X10^6/uL (4.0-5.2); Red Cell Distribution Width 13.9 % (11.6-14.8); White Blood Cell Count 7.1 X10^3/uL (4.5-11.0)
[2023-09-18 10:30] LABS: INR 1.1 (0.9-1.3)
[2023-09-18 10:32] LABS: PTT Partial Thromboplastin Tim 34 SECONDS (25.1-36.5)
[2023-09-18 10:36] LABS: Alanine Aminotransferase 33 IU/L (<35); Albumin 4.5 g/dL (3.5-5.0); Albumin Globulin Ratio 1.4 (1.0-2.8); Alkaline Phosphatase 73 U/L (38-126); Aspartate Aminotransferase 32 IU/L (14-36); Bilirubin Total 0.4 mg/dL (0.2-1.3); Blood Urea Nitrogen 9 mg/dL (7-17); Calcium 8.8 mg/dL (8.4-10.2); Carbon Dioxide 24 mmol/L (22-32); Chloride 108 mmol/L (98-107); Estimated Glomerular Filt Rate > 60 mL/min (>60); Globulin 3.3 g/dL (1.7-4.1); Glucose 127 mg/dL (70-100); HEMOLYSIS < 15 (0-50); Lipase 64 U/L (23-300); Magnesium 2.2 mg/dL (1.6-2.3); Potassium 3.4 mmol/L (3.4-5.1); Sodium 140 mmol/L (137-145); Total Protein 7.8 g/dL (6.3-8.2)
== END 2023-09-18 11:22 | disposition home or self-care (01) ==
PROVIDERS: Emergency Provider Emergency Medicine; Family Provider Family Medicine; PCP Family Medicine
DX: R00.2 Palpitations (principal); F41.9 Anxiety disorder, unspecified
CPT/HCPCS: 36415; 71275; 80053; 83690; 83735; 85025; 85610; 85730; 93005; 99283; 99284; Q9967

== ENCOUNTER 2024-01-27 07:07 | Emergency (ER) | payer OTHER, MEDICAID, SELFPAY ==
[2024-01-27] VITALS (11 sets, daily range): BP systolic 114–163; BP diastolic 70–97; PULSE 63–85; RESP 18; TEMP 36.4; O2SAT 97–100; BMI 23.6
--- NOTE | 2024-01-27 07:41 | ED.NEUROSD ---
HPI - Neuro Symptoms/Deficit General Chief Complaint: Neuro Symptoms/Deficit Stated Complaint: headache, blurry vision Time Seen by Provider: 01/27/24 07:09 Source: patient Mode of arrival: Ambulatory History of Present Illness HPI Narrative: 48-year-old woman with a history of pulmonary embolism after starting topical estrogen patch in May was on apixaban for six-months weaned off in November. Recently restarted vaginal estrogen and has had 4 doses, additional problems include hypothyroidism, history of anemia, she describes headache that has been worse for greater than 36 hours focusing in the right eye associated with loss of lights, flashes and also describes almost hallucination type visual changes with angry man that is seemed to want to hurt her. She describes palpitations, essential tightness in her upper chest, increasing anxiety and notes she is lost quite a bit of weight over the last months without trying to do so. On Anticoagulants: No Related Data Home Medications Medication Instructions Recorded Confirmed Vit B Complex/Vit C/Vit E/Zn 1 tab PO ##0 01/29/12 11/22/20 (#ZINC B.E.C.) Iron (#CHEW-IRON) 27 mg PO ##0 03/19/12 11/22/20 Lysine (#LYSINE) 2 tabs PO QDAY ##0 03/19/12 11/22/20 VITAMIN D (Vitamin D3) 1,000 unit PO QDAY ##0 03/22/12 11/22/20 ascorbic acid (vitamin C) 500 mg 500 mg PO QDAY ##0 03/22/12 11/22/20 tablet aszrucyy-uds-qurd-FA-Ca carb-vit K 1 tab PO DAILY 04/05/18 11/22/20 18 mg iron-400 mcg-500 mg tablet (Women's Multivitamin) diphenhydramine HCl 12.5 mg/5 mL 12.5 mg PO BEDTIME 04/26/19 11/22/20 oral liquid (Benadryl Allergy) elderberry fruit 0.7 gram-honey 3 ml PO 04/26/19 11/22/20 gram/7.5 mL oral liquid glucosamine sulfate 500 mg tablet 500 mg PO BID 04/26/19 11/22/20 (Glucosamine) apixaban 5 mg tablet 5 mg PO BID 09/08/23 09/08/23 levothyroxine 50 mcg tablet 50 mcg PO DAILY 09/08/23 09/08/23 (Levoxyl) minoxidil 2.5 mg tablet 2.5 mg PO DAILY 09/08/23 09/08/23 Previous Rx's Medication Instructions Recorded metronidazole 0.75 % (37.5 mg/5 1 applicator vaginal BEDTIME 7 03/29/19 gram) vaginal gel (Metrogel days #70 grams Vaginal) Allergies Allergy/AdvReac Type Severity Reaction Status Date / Time ciprofloxacin [CIPROFLOXACIN] Allergy Unknown Verified 09/08/23 08:27 fluconazole [FLUCONAZOLE] Allergy Unknown Verified 09/08/23 08:27 Sulfa (Sulfonamide Allergy Unknown Verified 09/08/23 08:27 Antibiotics) [SULFA (SULFONAMIDE ANTIBIOTICS)] Review of Systems Review of Systems Narrative: Pertinent positive and negative findings as per HPI Hematologic/Lymphatic On Anticoagulants: No Patient History Medical History Pulmonary embolism (07/01/23) Vaginal odor Foot pain, bilateral Family History Child Age: 31 Autism Digestive problems Father Age: 78 Diabetes mellitus Mother Age: 84 Heart disease High cholesterol Low blood pressure Anemia Social History household members: spouse Smoking Status: Never smoker alcohol intake: current Smoking Status: Never smoker alcohol intake frequency: holidays/special occasions only Substance Use Type: does not use Exam Initial Vital Signs Initial Vital Signs: Vital Signs Temperature 97.6 F 01/27/24 07:23 Pulse Rate 85 01/27/24 07:23 Respiratory Rate 18 01/27/24 07:23 Blood Pressure 163/97 H 01/27/24 07:23 Pulse Oximetry 100 01/27/24 07:23 Oxygen Delivery Method Room Air 01/27/24 07:23 General: Healthy appearing, in no acute distress. Able to give a complete and coherent history. Well-nourished well-developed HEENT: Moist mucous membranes, normal sclera with reactive pupils, no tenderness around the right eye. No erythema Respiratory: Lungs are clear to auscultation, no wheezing no rales no rhonchi. Full and symmetrical air movement Cardiac: Regular rate and rhythm no murmurs no bruits Abdomen: Soft, nontender, good bowel tones, no flank pain Skin: Warm and dry, no rashes Neurologic: Grossly neurologically intact with no obvious asymmetries or abnormalities Extremities: No trauma, well perfused Psych: Cooperative, appropriate insight and affect Course Orders Ordered: ED Orders 01/27/24 07:33 Complete Blood Count AUTO DIFF Stat Comprehensive Metabolic Panel Stat D Dimer Stat Magnesium Stat 01/27/24 07:47 CT head/brain wo con Stat 01/27/24 08:20 Urine Microscopic Stat Discontinued Medications Dexamethasone (Dexamethasone 10 Mg/Ml Vial) 10 mg IV NOW ONE Stop: 01/27/24 09:34 Last Admin: 01/27/24 10:03 Dose: 10 mg Documented By: ANKUR Diphenhydramine HCl (Diphenhydramine 50 Mg/Ml Vial) 25 mg IV NOW ONE Stop: 01/27/24 09:34 Last Admin: 01/27/24 10:03 Dose: 25 mg Documented By: ANKUR Sodium Chloride (Normal Saline 0.9%) 1,000 mls @ 1,000 mls/hr IV BOLUS ONE Stop: 01/27/24 10:32 Last Infusion: 01/27/24 11:11 Dose: Infused Documented By: Admin: 01/27/24 10:03 Dose: 1,000 mls/hr Documented By: ANKUR Ketorolac Tromethamine (Ketorolac 30 Mg/Ml Vial) 15 mg IV NOW ONE Stop: 01/27/24 09:34 Last Admin: 01/27/24 10:03 Dose: 15 mg Documented By: ANKUR Prochlorperazine (Prochlorperazine 10 Mg/2 Ml Vial) 10 mg IV NOW ONE Stop: 01/27/24 09:34 Last Admin: 01/27/24 10:02 Dose: 10 mg Documented By: ANKUR Vital Signs Vital signs: Vital Signs - 8 hr 01/27/24 07:23 01/27/24 07:38 01/27/24 07:54 Temperature 97.6 F Pulse Rate 85 72 Respiratory Rate 18 Blood Pressure 163/97 H 138/93 H Pulse Oximetry 100 100 Oxygen Delivery Method Room Air 01/27/24 07:54 01/27/24 08:00 01/27/24 08:00 Temperature Pulse Rate 76 67 Respiratory Rate Blood Pressure 136/81 Pulse Oximetry 98 97 Oxygen Delivery Method 01/27/24 08:30 01/27/24 08:30 01/27/24 09:00 Temperature Pulse Rate 63 Respiratory Rate Blood Pressure 124/81 114/74 Pulse Oximetry 99 Oxygen Delivery Method 01/27/24 09:00 01/27/24 09:30 01/27/24 09:30 Temperature Pulse Rate 65 65 Respiratory Rate Blood Pressure 118/70 Pulse Oximetry 97 100 Oxygen Delivery Method 01/27/24 10:00 01/27/24 10:00 01/27/24 10:02 Temperature Pulse Rate 65 64 Respiratory Rate Blood Pressure 125/84 125/84 Pulse Oximetry 100 Oxygen Delivery Method MDM - Neuro Symptoms/Deficit Lab Data 01/27/24 07:33 01/27/24 07:33 Labs: Lab Results 01/27/24 01/27/24 Range/Units 07:33 08:20 WBC 7.6 (4.5-11.0) X10^3/uL RBC 4.62 (4.0-5.2) X10^6/uL Hgb 15.0 (12.0-16.0) g/dL Hct 44.1 (36-46) % MCV 95.4 (80-100) fL MCH 32.4 (26-34) PG MCHC 34.0 (30-36) % RDW 12.4 (11.6-14.8) % Plt Count 314 (150-400) X10^3/uL Neut % (Auto) 80.6 H (50-75) % Lymph % (Auto) 12.9 L (25-40) % [place] % (Auto) 5.8 (3-14) % Eos % (Auto) 0.2 L (2-4) % Baso % (Auto) 0.5 (0-2) % Neut # (Auto) 6100 (3229-6715) /uL Lymph # (Auto) 1000 L (2906-6229) /uL [place] # (Auto) 400 (0-900) /uL Eos # (Auto) 0 (0-450) /uL Baso # (Auto) 0 (0-100) /uL D-Dimer < 215 (<500) ng/ml Sodium 139 (137-145) mmol/L Potassium 3.6 (3.4-5.1) mmol/L Chloride 103 (98-107) mmol/L Carbon Dioxide 28 (22-32) mmol/L BUN 8 (7-17) mg/dL Creatinine 0.77 (0.52-1.04) mg/dL Estimated GFR > 60 (>60) mL/min BUN/Creatinine Ratio 10.4 (6-22) Glucose 90 (70-100) mg/dL Calcium 9.5 (8.4-10.2) mg/dL Magnesium 2.1 (1.6-2.3) mg/dL Total Bilirubin 0.8 (0.2-1.3) mg/dL AST 22 (14-36) IU/L ALT 21 (<35) IU/L Alkaline Phosphatase 101 (38-126) U/L Total Protein 8.0 (6.3-8.2) g/dL Albumin 4.7 (3.5-5.0) g/dL Globulin 3.3 (1.7-4.1) g/dL Albumin/Globulin Ratio 1.4 (1.0-2.8) Urine RBC 1-5/hpf (0-5/HPF) Urine WBC None seen (0-5/HPF) Ur Squamous Epith Cells None seen (0-5/HPF) Urine Bacteria None seen (None) Ur Culture Indicated? Cult not indicated Vol Urine Centrifuged 10ml (spun) Point of Care Testing Test Results Negative Urine Dip Bedside Urine Glucose Negative Bedside Urine Bilirubin - Negative Bedside Urine Ketone - Negative Urine Specific David 1.000 Bedside Urine Occult Blood +/- Bedside Urine pH 7.0 Bedside Urine Protein - Negative Bedside Urine Urobilinogen - Negative Bedside Urine Nitrite - Negative Bedside Urine Leukocytes - Negative Esterase MDM Narrative Medical decision making narrative: CC: Increasing right eye pain with flashes, headache, increasing anxiety, chest tightness and palpitations, peripheral tingling with no motor loss Complicating co-morbidities: Recent PE felt to be secondary to exogenous estrogen use, 6 months of apixaban discontinued in November Data collected from: patient Social determinants of health that may influence the patients condition: Medical records reviewed: 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 The learning administrator did not feel that this pain that is related to her eye Differential considered: Complex migraine, recurrent pulmonary embolism, brain mass, severe anxiety Exam documented above, pertinent findings include: Aside from overall anxiety her exam is quite benign Lab Test results independently reviewed as above. Pertinent findings: CBC is reassuring Chemistries are reassuring D-dimer is not elevated, do not suspect PE Imaging studies independently reviewed: CT scan of the head shows no intracranial abnormalities skull and face are without specific lesions, visualized sinuses and mastoids are clear Treatments: Fluids, Compazine, dexamethasone And Toradol all for migraine treatment Re-evaluations: Patient is feeling much better Discussion: 48-year-old woman with a myriad of symptoms most concerning today is the flashing lights and pressure behind her right eye. CT scan of the head is unremarkable. Lab work does not suggest infection, significant electrolyte abnormalities recurrent pulmonary embolism. She is treated for migraine and this does seem to improve her symptoms. I am concerned that her current symptoms are complex migraine. Clearly no evidence of intracranial mass, stroke, infection pulmonary embolism or alternate explanation that would require additional imaging or hospitalization. Findings reviewed with her she will follow up with her primary care physician Discharge Plan Departure Patient Disposition: Home Clinical Impression: Alteration in vision Headache Qualifiers: Headache type: unspecified Headache chronicity pattern: acute headache Intractability: not intractable Qualified Code(s): R51.9 - Headache, unspecified Instructions: DI for Migraine Activity Restrictions/Additional Instructions: Thank you for coming in today Your symptoms do sound concerning. I am glad that you saw the eye doctor yesterday to confirm there was no issues with the back part of the eye. The CT scan today confirms that there is no issue with the structure of the I and no abnormalities with your brain such as a mass or tumor pressing on your eye and causing your symptoms. You do not have a stroke Your kidney function, liver function were all quite reassuring. Your D-dimer was quite low indicating no evidence of clotting in your body meeting you do not have a recurrent pulmonary embolism You were treated for a migraine headache and that is seemed to improve things. I suspect that the visual changes and I pain on the right side are aversion of a complex migraine. I hope that you are able to get some sleep today, often times that helps more than anything Sometimes in the emergency department were able to tell you all the things you do not have but you still need to work with your regular doctor to figure out what you do have. Please do schedule an outpatient follow up appointment with your primary physician Prescriptions: No Action Vit B Complex/Vit C/Vit E/Zn (#ZINC B.E.C.) 1 tab PO Qty: 0 Iron (#CHEW-IRON) 27 mg PO Qty: 0 Lysine (#LYSINE) 2 tabs PO QDAY Qty: 0 ascorbic acid (vitamin C) 500 MG tablet 500 mg PO QDAY Qty: 0 VITAMIN D (Vitamin D3) 1,000 unit PO QDAY Qty: 0 metronidazole [Metrogel Vaginal] 0.75 % gel 1 applicator VAG BEDTIME 7 Days Qty: 70 1RF rl-pf-alrt-FA-Ca carb-vit K [Women's Multivitamin] 18 mg iron-400 mcg-500 mg tablet 1 tab PO DAILY glucosamine sulfate [Glucosamine] 500 mg tablet 500 mg PO BID diphenhydramine HCl [Benadryl Allergy] 12.5 mg/5 mL liquid 12.5 mg PO BEDTIME elderberry fruit-honey 0.7-3 gram/7.5 mL liquid PO levothyroxine [Levoxyl] 50 mcg tablet 50 mcg PO DAILY minoxidil 2.5 mg tablet 2.5 mg PO DAILY apixaban 5 mg tablet 5 mg PO BID Referrals: Jesus Blair, [Primary Care Provider] - Stand Alone Forms: Patient Portal/API/Survey
--- NOTE | 2024-01-27 07:47 | DI.CT.S_ITS ---
PROCEDURE: CT HEAD/BRAIN WO CON INDICATIONS: new headache with pressure behind R eye >3weeks TECHNIQUE: Noncontrast 4.5 mm thick angled axial sections acquired from the foramen magnum to the vertex, with coronal and sagittal reformats. For radiation dose reduction, the following was used: automated exposure control, adjustment of mA and/or kV according to patient size. COMPARISON: None. FINDINGS: Image quality: Diagnostic. CSF spaces: Basal cisterns are patent. No extra-axial fluid collections. Ventricles are normal in size and shape. Brain: No midline shift. No intracranial masses or hemorrhage. Hendricks-white matter interface is normal. Skull and face: Calvarium and visualized facial bones are intact, without suspicious lesions. Sinuses: Visualized sinuses and mastoids are clear. IMPRESSION: No acute intracranial pathology. Dictated by: Bennett Peña M.D. on 01/27/2024 at 8:15 Approved by: Bennett Peña M.D. on 01/27/2024 at 8:15
[2024-01-27 07:53] LABS: Add Manual Diff / Slide Review NO; Basophils Absolute Auto 0 /uL (0-100); Basophils Percent Auto 0.5 % (0-2); Eosinophils Absolute Auto 0 /uL (0-450); Eosinophils Percent Auto 0.2 % (2-4); Hematocrit 44.1 % (36-46); Lymphocytes Absolute Auto 1000 /uL (1100-4500); Lymphocytes Percent Auto 12.9 % (25-40); Mean Corpuscular Hemoglobin 32.4 PG (26-34); Mean Corpuscular Volume 95.4 fL (80-100); Monocytes Absolute Auto 400 /uL (0-900); Monocytes Percent Auto 5.8 % (3-14); Neutrophils Absolute Auto 6100 /uL (1500-7000); Neutrophils Percent Auto 80.6 % (50-75); Platelet Count 314 X10^3/uL (150-400); Red Blood Cell Count 4.62 X10^6/uL (4.0-5.2); Red Cell Distribution Width 12.4 % (11.6-14.8); White Blood Cell Count 7.6 X10^3/uL (4.5-11.0)
[2024-01-27 07:55] LABS: D Dimer < 215 ng/ml (<500)
[2024-01-27 07:57] LABS: Alanine Aminotransferase 21 IU/L (<35); Albumin 4.7 g/dL (3.5-5.0); Albumin Globulin Ratio 1.4 (1.0-2.8); Alkaline Phosphatase 101 U/L (38-126); Aspartate Aminotransferase 22 IU/L (14-36); BUN Creatinine Ratio 10.4 (6-22); Bilirubin Total 0.8 mg/dL (0.2-1.3); Blood Urea Nitrogen 8 mg/dL (7-17); Calcium 9.5 mg/dL (8.4-10.2); Carbon Dioxide 28 mmol/L (22-32); Chloride 103 mmol/L (98-107); Estimated Glomerular Filt Rate > 60 mL/min (>60); Globulin 3.3 g/dL (1.7-4.1); Glucose 90 mg/dL (70-100); HEMOLYSIS 20 (0-50); Magnesium 2.1 mg/dL (1.6-2.3); Potassium 3.6 mmol/L (3.4-5.1); Sodium 139 mmol/L (137-145)
[2024-01-27 09:18] LABS: Urine Volume 10mL (spun)
[2024-01-27 09:21] LABS: Bacteria Urine None Seen; Culture Indicated Urine Cult Not Indicated; RBC Urine 1-5/HPF (0-5/HPF); Squamous Epithelial Cell Urine None Seen (0-5/HPF); WBC Urine None Seen (0-5/HPF)
[2024-01-27] MEDS: PROCHLORPERAZINE 10 MG/2 ML VIAL IV (10:02)
[2024-01-27] MEDS: KETOROLAC 30 MG/ML VIAL 15 MG IV (10:03)
[2024-01-27] MEDS: SODIUM CHLORIDE 0.9% 1,000 ML 1000 ML IV (10:03)
[2024-01-27] MEDS: diphenhydrAMINE 50 MG/ML VIAL 25 MG IV (10:03)
[2024-01-27] MEDS: DEXAMETHASONE 10 MG/ML VIAL IV (10:03)
--- NOTE | 2024-01-27 11:13 | PC.NURSE ---
Pt states that she feels better and her TINAJERO has improved. A&Ox4. Dr Jensen notified.
== END 2024-01-27 11:31 | disposition home or self-care (01) ==
PROVIDERS: Emergency Provider Emergency Medicine; Family Provider Family Medicine; PCP Family Medicine
DX: Z79.01 Long term (current) use of anticoagulants (principal); R51.9 Headache, unspecified; R00.2 Palpitations; R07.9 Chest pain, unspecified; H54.7 Unspecified visual loss
CPT/HCPCS: 36415; 70450; 80053; 81003; 81015; 81025; 83735; 85025; 85379; 96361; 96374; 96375; 99284; J0780; J1100; J1200; J1885

== ENCOUNTER 2024-04-08 08:04 | Emergency (ER) | payer OTHER, SELFPAY ==
[2024-04-08] VITALS (9 sets, daily range): BP systolic 132–168; BP diastolic 81–94; PULSE 64–86; RESP 16–47; TEMP 36.8; O2SAT 97–100; BMI 26.4
--- NOTE | 2024-04-08 08:08 | DI.RAD.S_ITS ---
PROCEDURE: XR CHEST 1V INDICATIONS: chest pain TECHNIQUE: One view of the chest was acquired. COMPARISON: [facility], CR, XR CHEST 1V, 07/02/2023, 13:11. FINDINGS: Surgical changes and devices: None. Lungs and pleura: Lungs are clear. No pleural effusions or pneumothorax. Mediastinum: Mediastinal contours appear normal. Heart size is normal. Bones and chest wall: No suspicious bony lesions. Overlying soft tissues appear unremarkable. IMPRESSION: No acute cardiopulmonary abnormality is seen. Dictated by: Bennett Peña M.D. on 04/08/2024 at 9:04 Approved by: Bennett Peña M.D. on 04/08/2024 at 9:04
--- NOTE | 2024-04-08 08:14 | ED_ITS ---
HPI - General Adult General Chief complaint: Chest Pain Stated complaint: Mild chest pain, feeling sick Time Seen by Provider: 04/08/24 08:12 History of Present Illness HPI narrative: 48-year-old woman with a history of pulmonary embolism in June of 2023 treated with 6 months of apixaban, hypothyroidism, complaints chronic left upper quadrant pain that has been going on for a number of months, were current episodes of a throbbing sensation in her left upper chest that radiates into her neck and her arm. Today she is complaining that the throbbing sensation in the left upper chest is worse, the chronic left upper quadrant pain is worse and she generally feels worse overall. She is concerned that her blood pressure has been elevated at home over the last couple of days, she is not diagnosed with hypertension is not on blood pressure medications. No nausea or vomiting. No fevers chills or cough. No orthopnea. Related Data Home Medications Medication Instructions Recorded Confirmed Vit B Complex/Vit C/Vit E/Zn 1 tab PO ##0 01/29/12 11/22/20 (#ZINC B.E.C.) Iron (#CHEW-IRON) 27 mg PO ##0 03/19/12 11/22/20 Lysine (#LYSINE) 2 tabs PO QDAY ##0 03/19/12 11/22/20 VITAMIN D (Vitamin D3) 1,000 unit PO QDAY ##0 03/22/12 11/22/20 ascorbic acid (vitamin C) 500 mg 500 mg PO QDAY ##0 03/22/12 11/22/20 tablet rxwaioaa-vsf-lvvx-FA-Ca carb-vit K 1 tab PO DAILY 04/05/18 11/22/20 18 mg iron-400 mcg-500 mg tablet (Women's Multivitamin) diphenhydramine HCl 12.5 mg/5 mL 12.5 mg PO BEDTIME 04/26/19 11/22/20 oral liquid (Benadryl Allergy) elderberry fruit 0.7 gram-honey 3 ml PO 04/26/19 11/22/20 gram/7.5 mL oral liquid glucosamine sulfate 500 mg tablet 500 mg PO BID 04/26/19 11/22/20 (Glucosamine) apixaban 5 mg tablet 5 mg PO BID 09/08/23 09/08/23 levothyroxine 50 mcg tablet 50 mcg PO DAILY 09/08/23 09/08/23 (Levoxyl) minoxidil 2.5 mg tablet 2.5 mg PO DAILY 09/08/23 09/08/23 Previous Rx's Medication Instructions Recorded metronidazole 0.75 % (37.5 mg/5 1 applicator vaginal BEDTIME 7 03/29/19 gram) vaginal gel (Metrogel days #70 grams Vaginal) pantoprazole 40 mg tablet,delayed 40 mg PO DAILY #90 tabs 04/08/24 release Allergies Allergy/AdvReac Type Severity Reaction Status Date / Time ciprofloxacin [CIPROFLOXACIN] Allergy Unknown Verified 04/08/24 10:37 fluconazole [FLUCONAZOLE] Allergy Unknown Verified 04/08/24 10:37 Sulfa (Sulfonamide Allergy Unknown Verified 04/08/24 10:37 Antibiotics) [SULFA (SULFONAMIDE ANTIBIOTICS)] prochlorperazine AdvReac Intermediate Anxiety Verified 04/08/24 10:39 [From Compazine] Review of Systems Review of Systems Narrative: Pertinent positive and negative findings as per HPI Patient History Medical History Pulmonary embolism (07/01/23) Vaginal odor Foot pain, bilateral Family History Child Age: 31 Autism Digestive problems Father Age: 78 Diabetes mellitus Mother Age: 84 Heart disease High cholesterol Low blood pressure Anemia Social History household members: spouse Smoking Status: Never smoker alcohol intake: current Smoking Status: Never smoker alcohol intake frequency: holidays/special occasions only Exam Initial Vital Signs Initial Vital Signs: Vital Signs Temperature 98.3 F 04/08/24 08:10 Pulse Rate 82 04/08/24 08:10 Respiratory Rate 16 04/08/24 08:10 Blood Pressure 168/94 H 04/08/24 08:10 Pulse Oximetry 98 04/08/24 08:10 Oxygen Delivery Method Room Air 04/08/24 08:10 General: Healthy appearing, anxious but able to cooperate with exam HEENT: Moist mucous membranes, normal sclera with reactive pupils, Respiratory: Lungs are clear to auscultation, no wheezing no rales no rhonchi. Full and symmetrical air movement Cardiac: Regular rate and rhythm no murmurs no bruits Abdomen: Soft, mild discomfort in the left upper quadrant with no flank pain Skin: Warm and dry, no rashes Neurologic: Grossly neurologically intact with no obvious asymmetries or abnormalities Extremities: No trauma, well perfused Psych: Cooperative, appropriate insight and affect Course Orders Ordered: ED Orders 04/08/24 08:08 XR chest 1V Stat EKG-12 Lead Stat 04/08/24 08:25 Complete Blood Count AUTO DIFF Stat Comprehensive Metabolic Panel Stat Lipase Stat Magnesium Stat NT-proBNP (BNP-Adult 18+) Stat PTT Partial Thromboplastin Ant Stat Prothrombin Time INR Stat Troponin & CK Cardiac Panel Stat Discontinued Medications Aspirin (Aspirin 81 Mg Chew Tab) 324 mg PO NOW ONE Stop: 04/08/24 08:08 Last Admin: 04/08/24 08:35 Dose: 324 mg Documented By: OREN Prochlorperazine (Prochlorperazine 10 Mg/2 Ml Vial) 10 mg IV NOW ONE Stop: 04/08/24 09:49 Vital Signs Vital signs: Vital Signs - 8 hr 04/08/24 08:10 04/08/24 08:16 04/08/24 08:30 Temperature 98.3 F Pulse Rate 82 78 78 Respiratory Rate 16 24 24 Blood Pressure 168/94 H Pulse Oximetry 98 98 100 Oxygen Delivery Method Room Air Room Air 04/08/24 09:00 04/08/24 09:30 Temperature Pulse Rate 82 86 Respiratory Rate Blood Pressure Pulse Oximetry 99 97 Oxygen Delivery Method Room Air Medical Decision Making Lab Data 04/08/24 08:25 04/08/24 08:25 Labs: Lab Results 04/08/24 Range/Units 08:25 WBC 8.1 (4.5-11.0) X10^3/uL RBC 4.44 (4.0-5.2) X10^6/uL Hgb 14.4 (12.0-16.0) g/dL Hct 42.1 (36-46) % MCV 94.8 (80-100) fL MCH 32.4 (26-34) PG MCHC 34.1 (30-36) % RDW 12.3 (11.6-14.8) % Plt Count 289 (150-400) X10^3/uL Neut % (Auto) 79.2 H (50-75) % Lymph % (Auto) 13.6 L (25-40) % [place] % (Auto) 6.4 (3-14) % Eos % (Auto) 0.4 L (2-4) % Baso % (Auto) 0.4 (0-2) % Neut # (Auto) 6500 (1965-5439) /uL Lymph # (Auto) 1100 (7406-6037) /uL [place] # (Auto) 500 (0-900) /uL Eos # (Auto) 0 (0-450) /uL Baso # (Auto) 0 (0-100) /uL PT 10.8 (9.4-12.5) SECONDS INR 1.0 (0.9-1.3) APTT 30 (25.1-36.5) SECONDS Sodium 137 (137-145) mmol/L Potassium 3.7 (3.4-5.1) mmol/L Chloride 104 (98-107) mmol/L Carbon Dioxide 28 (22-32) mmol/L BUN 13 (7-17) mg/dL Creatinine 0.77 (0.52-1.04) mg/dL Estimated GFR > 60 (>60) mL/min BUN/Creatinine Ratio 16.9 (6-22) Glucose 99 (70-100) mg/dL Calcium 9.1 (8.4-10.2) mg/dL Magnesium 2.0 (1.6-2.3) mg/dL Total Bilirubin 0.5 (0.2-1.3) mg/dL AST 25 (14-36) IU/L ALT 27 (<35) IU/L Alkaline Phosphatase 81 (38-126) U/L Total Creatine Kinase 60 (30-135) U/L Troponin I < 0.012 (0.01-0.034) ng/mL NT-Pro-B Natriuret Pep 65 (<125) pg/mL Total Protein 7.7 (6.3-8.2) g/dL Albumin 4.7 (3.5-5.0) g/dL Globulin 3.0 (1.7-4.1) g/dL Albumin/Globulin Ratio 1.6 (1.0-2.8) Lipase 152 (23-300) U/L MDM Narrative Medical decision making narrative: CC: Pounding sensation left upper chest/arm/neck, generally not feeling well Complicating co-morbidities: Prior pulmonary embolism treated for 6 months Data collected from: patient Medical records reviewed: Notes from oncology nurse practitioner March 24 follow up after discontinuing apixaban for pulmonary embolus indicate complaints at that point of anxiousness, tearful, unexplained dyspnea, palpitations, body aches, pain, numbness, tingling, fatigue, lethargy. Similar complaints 2 today ER note from January 26 with multiple symptoms all quite vague with flashing lights some pressure behind her eye negative workup are reviewed Differential considered: Depression with anxiety, PE is felt to be less likely given persistent symptoms and negative D-dimer 17 days ago, chronic pancreatitis, other abdominal source for her pain or symptoms, given the length of systems viral etiology is felt to be less likely Exam documented above, pertinent findings include: Anxious, appears to be uncomfortable complaining of significant palpitations with out associated tachycardia Lab Test results independently reviewed as above. Pertinent findings: Labs from March 22, CBC, CMP, D-dimer were all reassuring with D-dimer low at less than 0.27 CBC is unremarkable Chemistries are reassuring Troponin is undetectable Lipase is normal Independently reviewed EKG: EKG shows sinus rhythm at a rate of 77. Patient does complain of tachycardia and throbbing in the left upper chest and shoulder area with sinus rhythm at 80 noted on telemetry Imaging studies independently reviewed: Chest x-ray is unremarkable Treatments: Prochlorperazine that did not help with either abdominal pain or anxiety IV pantoprazole Discussion: 48-year-old woman with months of continued vague complaints most urgent complaint for her now is stomach pain and the palpitations in the upper chest. She is working with an outpatient physician who is doing very appropriate extended workup including rheumatologic disorders looking for inflammatory markers and stool. In the past she has had some minor improvement on a proton pump inhibitor, we will give her a prescription to restart this. Also briefly discussed depression and anxiety if not a primary source of her pain certainly exacerbating other symptoms. She has been on antidepressants in the past most recently amitriptyline and stopped this because of some sort of dental abnormality. She notes that the seasonal darkness always makes things worse. Suggested that she talk about an antidepressant with her primary care physician with concurrent workup as already initiated. Regarding her hypertension, she does have access to a blood pressure cuff at home. Recommended checking numbers and simply documenting them to review with her physician with the next visit. At this point there was no indication for addition urgent imaging, blood work or hospitalization she was discharged home Discharge Plan Departure Patient Disposition: Home Clinical Impression: Throbbing pain, Elevated blood pressure reading Abdominal pain Qualifiers: Abdominal location: upper abdomen, unspecified Qualified Code(s): R10.10 - Upper abdominal pain, unspecified Activity Restrictions/Additional Instructions: Thank you for coming in today, I am sorry you are continuing to suffer with all symptoms From the emergency department I am not finding any life-threatening abnormalities such as recurrent blood clot in your lungs, collapsed lung, heart attack, pneumonia, acute anemia. I believe that the workup that you have started with your outpatient doctor is entirely appropriate please do follow up with the stool and blood tests as has been ordered In the meantime I would like you to check your blood pressure. Was elevated today. I would recommend checking a couple of times a week, simply documenting the numbers and reviewing with your primary care physician with your next visit. You had mentioned that a stomach acid medicine has been somewhat helpful in the past, I have sent a prescription to [facility] here in [place] for 3 months of daily pantoprazole. Finally, with as many symptoms as you have affecting as many different parts of your body as you are noting with a history of depression anxiety, I would suggest that you discuss treatment for depression and anxiety with your primary care physician. Both of these diagnosis can be subtle and can exacerbate any other issues that you are currently having. Here in [place] with are very short days seasonal affective disorder can also contribute. If you find that you are getting worse or develop any new symptoms, please feel free to return to the emergency department for further evaluation. Prescriptions: New pantoprazole 40 mg tablet,delayed release (DR/EC) 40 mg PO DAILY Qty: 90 0RF No Action Vit B Complex/Vit C/Vit E/Zn (#ZINC B.E.C.) 1 tab PO Qty: 0 Iron (#CHEW-IRON) 27 mg PO Qty: 0 Lysine (#LYSINE) 2 tabs PO QDAY Qty: 0 ascorbic acid (vitamin C) 500 MG tablet 500 mg PO QDAY Qty: 0 VITAMIN D (Vitamin D3) 1,000 unit PO QDAY Qty: 0 metronidazole [Metrogel Vaginal] 0.75 % gel 1 applicator VAG BEDTIME 7 Days Qty: 70 1RF cv-bi-[id number]-FA-Ca carb-vit K [Women's Multivitamin] 18 mg iron-400 mcg-500 mg tablet 1 tab PO DAILY glucosamine sulfate [Glucosamine] 500 mg tablet 500 mg PO BID diphenhydramine HCl [Benadryl Allergy] 12.5 mg/5 mL liquid 12.5 mg PO BEDTIME elderberry fruit-honey 0.7-3 gram/7.5 mL liquid PO levothyroxine [Levoxyl] 50 mcg tablet 50 mcg PO DAILY minoxidil 2.5 mg tablet 2.5 mg PO DAILY apixaban 5 mg tablet 5 mg PO BID Referrals: Jesus Blair, [Primary Care Provider] - Stand Alone Forms: Patient Portal/API/Survey
--- NOTE | 2024-04-08 08:17 | EKG_ITS ---
[address] [address] Test Date: 2024-04-08 Pat Name: Maritza Todd Department: Room: Gender: Female Trial Consultant: BRISA : 1975 Requested By: Order Number: [id number] Reading MD: Leonel Landry MD Measurements Intervals Superior Rate: 77 P: 62 OK: 176 QRS: 40 QRSD: 84 T: 46 QT: 404 QTc: 457 Interpretive Statements Normal sinus rhythm Electronically Signed On 04-08-2024 8:18:31 PST by Leonel Landry MD
[2024-04-08] MEDS: ASPIRIN 81 MG CHEW TAB 324 MG PO (08:35)
[2024-04-08 08:43] LABS: Add Manual Diff / Slide Review NO; Basophils Absolute Auto 0 /uL (0-100); Basophils Percent Auto 0.4 % (0-2); Eosinophils Absolute Auto 0 /uL (0-450); Eosinophils Percent Auto 0.4 % (2-4); Hematocrit 42.1 % (36-46); Hemoglobin 14.4 g/dL (12.0-16.0); Lymphocytes Absolute Auto 1100 /uL (1100-4500); Lymphocytes Percent Auto 13.6 % (25-40); Mean Corpuscular HGB Conc 34.1 % (30-36); Mean Corpuscular Hemoglobin 32.4 PG (26-34); Mean Corpuscular Volume 94.8 fL (80-100); Monocytes Absolute Auto 500 /uL (0-900); Monocytes Percent Auto 6.4 % (3-14); Neutrophils Absolute Auto 6500 /uL (1500-7000); Neutrophils Percent Auto 79.2 % (50-75); Platelet Count 289 X10^3/uL (150-400); Red Blood Cell Count 4.44 X10^6/uL (4.0-5.2); Red Cell Distribution Width 12.3 % (11.6-14.8); White Blood Cell Count 8.1 X10^3/uL (4.5-11.0)
[2024-04-08 08:49] LABS: Prothrombin Time 10.8 SECONDS (9.4-12.5)
[2024-04-08 08:52] LABS: Alanine Aminotransferase 27 IU/L (<35); Albumin 4.7 g/dL (3.5-5.0); Albumin Globulin Ratio 1.6 (1.0-2.8); Alkaline Phosphatase 81 U/L (38-126); Aspartate Aminotransferase 25 IU/L (14-36); BUN Creatinine Ratio 16.9 (6-22); Bilirubin Total 0.5 mg/dL (0.2-1.3); Blood Urea Nitrogen 13 mg/dL (7-17); Calcium 9.1 mg/dL (8.4-10.2); Carbon Dioxide 28 mmol/L (22-32); Chloride 104 mmol/L (98-107); Creatine Kinase 60 U/L (30-135); Estimated Glomerular Filt Rate > 60 mL/min (>60); Glucose 99 mg/dL (70-100); HEMOLYSIS 38 (0-50); Lipase 152 U/L (23-300); PTT Partial Thromboplastin Tim 30 SECONDS (25.1-36.5); Potassium 3.7 mmol/L (3.4-5.1); Sodium 137 mmol/L (137-145); Total Protein 7.7 g/dL (6.3-8.2)
[2024-04-08 09:04] LABS: NT-proBNP (BNP-Adult 18+) 65 pg/mL (<125); Troponin I < 0.012 ng/mL (0.01-0.034)
[2024-04-08] MEDS: PANTOPRAZOLE 40 MG VIAL IV (11:14)
== END 2024-04-08 11:39 | disposition home or self-care (01) ==
PROVIDERS: Emergency Provider Emergency Medicine; Family Provider Family Medicine; PCP Family Medicine
DX: R10.12 Left upper quadrant pain (principal); R03.0 Elevated blood-pressure reading, without diagnosis of hypertension; R00.2 Palpitations
CPT/HCPCS: 36415; 71045; 80053; 82550; 83690; 83735; 83880; 84484; 85025; 85610; 85730; 93005; 93010; 96374; 99284; J2470

== ENCOUNTER 2024-06-30 10:45 | Outpatient (RCR) | payer OTHER, SELFPAY ==
--- NOTE | 2024-05-18 15:19 | PT.OIE ---
Current Diagnoses Cervicogenic headache (05/18/24) Cervicalgia (05/18/24) Past Medical History (Last Reviewed 04/08/24 @ 09:07 by Brittany Jensen MD) Foot pain, bilateral Pulmonary embolism (07/01/23) Vaginal odor Visit Care Team Role Provider Type Nirali Smith DO Family Provider Non-Staff Specialty: Medical Address: [address] [place] [address], [phone] Email: Jesus Blair DO Attending Provider Non-Staff Primary Care Provider Referring Provider Specialty: Family Practice Address: [address] [place] [address], [id number] Email: Physical Therapy Initial Evaluation PT-OP-A Visit Information Start: 05/18/24 11:23 Freq: Status: Active Protocol: Document 05/18/24 09:45 DCW (Rec: 05/18/24 11:28 DCW [id number]) Out-Patient Physical Therapy Visit Information Visit Information Visit Type Initial Evaluation Visit Start Time 09:45 Visit Stop Time 10:30 Visit Number 1 Number of SECOND HAND PAPER MACHINE Visits 0 Evaluation Information Evaluation Date 05/18/24 PT-OP-B Current Condition Start: 05/18/24 11:23 Freq: Status: Active Protocol: Document 05/18/24 09:45 DCW (Rec: 05/18/24 14:27 DCW [id number]) Current Condition History of Current Condition Onset Date 18 year history Current Complaints Neck pain, face pain, migraines History of Current Condition Pt reports an 18 year history of head, neck, and face pain associated with migraine. Pt reports that her symptoms initially started after moving to [place] from [place] . Migraines used to largely be more symptomatic at certain points during her cycle,but have worsened in frequency over the years. Pt reports that it is mainly pressure and pain directly behind her left eye, but she can just feel like its coming from right back here (cervical spine/base of skull on the left). My neck has just never felt right . Used to get OMT at [facility], but has changed physicians, and is unable to get OMT any longer. Pain is also associated with light sensitivity and nausea. Had some significant health problems last year, reports she was put on a hormone patch , and shortly afterward developed a Pulmonary Emboli, and was experiencing severe anemia and tingling in her limbs. Was severely ill for months, still has a strong emotional response when reviewing her history. Hoping that improving cervical strength and stability will help decrease frequency and severity of migraines. PT-OP-C Subjective Start: 05/18/24 11:23 Freq: Status: Active Protocol: Document 05/18/24 09:45 DCW (Rec: 05/18/24 14:27 DCW [id number]) OP-PT Subjective Patient Comments Patient Comments I may look like a mess on paper, but I just need to feel better enough so I can care for everyone well plus myself. Patient Reported Progress Worse Patient Questionnaires Neck Disability Index NDI Score 950 = 18% PT-OP-F Manual Assessment Start: 05/18/24 11:23 Freq: Status: Active Protocol: Document 05/18/24 09:45 DCW (Rec: 05/18/24 14:27 DCW [id number]) Manual Assessments Soft Tissue Assessment Soft Tissue Mobility Assessment Mild tone in cervical musculature, no tenderness Joint Mobility Assessment Joint Mobility Assessment Slight clockwise rotation of C6, mild tenderness with joint mobilization PT-OP-K Range of Motion Start: 05/18/24 11:23 Freq: Status: Active Protocol: Document 05/18/24 09:45 DCW (Rec: 05/18/24 14:27 DCW [id number]) Cervical Spine Range of Motion Cervical Spine Active Degrees Testing Position Sitting Flexion 70 Extension 60 Rotation Left 60 Rotation Right 65 Lateral Flexion Left 50 Lateral Flexion Right 50 PT-OP-L Special Tests Start: 05/18/24 11:23 Freq: Status: Active Protocol: Document 05/18/24 09:45 DCW (Rec: 05/18/24 14:27 DCW [id number]) Special Tests Cervical Spine Special Tests Traction Test Results Negative Spurling's Test Test Results Negative Slump Test Results Negative Passive Neck Flexion Test Results Negative Foraminal Compression Test Results Negative PT-OP-Q Treatments Start: 05/18/24 11:23 Freq: Status: Active Protocol: Document 05/18/24 09:45 DCW (Rec: 05/18/24 11:28 DCW [id number]) Therapeutic Exercises Supine Exercises Chin Tuck Supine Exercise Name Chin Tuck/Head Lift Sitting Exercises Isometrics Sitting Exercise Name Isometric Cervical extension, lateral flexion Side bilateral Resistance Lv 2 PT-OP-T Assessment and Plan Start: 05/18/24 11:23 Freq: Status: Active Protocol: Document 05/18/24 09:45 DCW (Rec: 05/18/24 14:27 DCW [id number]) Physical Therapy Assessment Rehab Potential Rehabilitation Potential Fair Evaluation Complexity Number of Personal Factors/Comorbidities 3 or More Number of Body Systems Impaired 4 or More Clinical Presentation at Evaluation Unstable Impairments Impairments Activity Tolerance,Functional Activities,Pain,Sensation, Strength Goals Two Impairment Pt experiences frequent migraines that impact her daily life Yarn Dry Room Worker Goal (LTG) Pt to report reduced frequency of migraines to fewer than four days a week, in oder to improve ability to perform typical household activities. 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 Overall, pt's soft tissue not displaying much in the way of hypertonia or tenderness today, pt did have some slight clockwise rotation in C6, reduced with resisted rotation. Pt may benefit from skilled therapy focusing on cervical mobility, strengthening, and manual techniques Physical Therapy Plan Frequency and Duration Frequency of Treatment 2x/Week Plan of Care Start Date 05/18/24 Plan of Care End Date 08/16/24 Therapeutic Interventions Therapeutic Interventions Home Exercise Program,Manual Therapy,Neuromuscular Re- education,Patient/Caregiver Education,Self-Care/Home Management,Soft Tissue Mobilization,Therapeutic Activities,Therapeutic Exercises Modalities Cold Pack/Ice Massage,Hot Packs,Traction- Mechanical, Ultrasound Next Visit Focus/Plan Next Note Type Treatment Note Next Visit Plan STM, joint mobs, MWM, cervical strengthening
--- NOTE | 2024-05-18 15:20 | PT.OPPOC ---
Physical, Occupational & Speech Therapy At [facility] Current Diagnoses Cervicogenic headache (05/18/24) Cervicalgia (05/18/24) Visit Care Team Role Provider Type Nirali Smith DO Family Provider Non-Staff Specialty: Medical Address: [address] [place] [address], [phone] Email: Jesus Blair DO Attending Provider Non-Staff Primary Care Provider Referring Provider Specialty: Family Practice Address: [address] [place] [address], [place], [address] Email: Plan Of Care PT-OP-B Current Condition Start: 05/18/24 11:23 Freq: Status: Active Protocol: Document 05/18/24 09:45 DCW (Rec: 05/18/24 14:27 DCW [id number]) Current Condition History of Current Condition Onset Date 18 year history Current Complaints Neck pain, face pain, migraines History of Current Condition Pt reports an 18 year history of head, neck, and face pain associated with migraine. Pt reports that her symptoms initially started after moving to [place] from [place] . Migraines used to largely be more symptomatic at certain points during her cycle,but have worsened in frequency over the years. Pt reports that it is mainly pressure and pain directly behind her left eye, but she can just feel like its coming from right back here (cervical spine/base of skull on the left). My neck has just never felt right . Used to get OMT at [facility], but has changed physicians, and is unable to get OMT any longer. Pain is also associated with light sensitivity and nausea. Had some significant health problems last year, reports she was put on a hormone patch , and shortly afterward developed a Pulmonary Emboli, and was experiencing severe anemia and tingling in her limbs. Was severely ill for months, still has a strong emotional response when reviewing her history. Hoping that improving cervical strength and stability will help decrease frequency and severity of migraines. PT-OP-T Assessment and Plan Start: 05/18/24 11:23 Freq: Status: Active Protocol: Document 05/18/24 09:45 DCW (Rec: 05/18/24 14:27 [facility] [id number]) Physical Therapy Assessment Rehab Potential Rehabilitation Potential Fair Evaluation Complexity Number of Personal Factors/Comorbidities 3 or More Number of Body Systems Impaired 4 or More Clinical Presentation at Evaluation Unstable Impairments Impairments Activity Tolerance,Functional Activities,Pain,Sensation, Strength Goals Two Impairment Pt experiences frequent migraines that impact her daily life Shelter Goal (LTG) Pt to report reduced frequency of migraines to fewer than four days a week, in oder to improve ability to perform typical household activities. 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 Overall, pt's soft tissue not displaying much in the way of hypertonia or tenderness today, pt did have some slight clockwise rotation in C6, reduced with resisted rotation. Pt may benefit from skilled therapy focusing on cervical mobility, strengthening, and manual techniques Physical Therapy Plan Frequency and Duration Frequency of Treatment 2x/Week Plan of Care Start Date 05/18/24 Plan of Care End Date 08/16/24 Therapeutic Interventions Therapeutic Interventions Home Exercise Program,Manual Therapy,Neuromuscular Re- education,Patient/Caregiver Education,Self-Care/Home Management,Soft Tissue Mobilization,Therapeutic Activities,Therapeutic Exercises Modalities Cold Pack/Ice Massage,Hot Packs,Traction- Mechanical, Ultrasound Next Visit Focus/Plan Next Note Type Treatment Note Next Visit Plan STM, joint mobs, MWM, cervical strengthening Plan of Care Dates Plan of Care Start Date 05/18/24 Plan of Care End Date 08/16/24 Electronically Signed by: Rogers Calles, PT 05/18/24 [id number] If you are in agreement with this Plan of Care, please return a signed and dated copy. I have reviewed this Plan of Care and certify that the skilled therapy services above are required to meet the patient?s needs. Physician Signature Date Printed Name and Credentials Clinical Instructor Signature Printed Name and Credentials
--- NOTE | 2024-05-20 10:37 | PT.OTN ---
Current Diagnoses Cervicogenic headache (05/20/24) Cervicalgia (05/20/24) Physical Therapy Treatment Note PT-OP-A Visit Information Start: 05/18/24 11:23 Freq: Status: Active Protocol: Document 05/20/24 09:45 DCW (Rec: 05/20/24 10:36 DCW [id number]) Out-Patient Physical Therapy Visit Information Visit Information Visit Type Treatment Note Visit Start Time 09:45 Visit Stop Time 10:30 Visit Number 2 Number of CELL TENDER Visits 0 Evaluation Information Evaluation Date 05/18/24 PT-OP-B Current Condition Start: 05/18/24 11:23 Freq: Status: Active Protocol: Document 05/18/24 09:45 DCW (Rec: 05/18/24 14:27 DCW [id number]) Current Condition History of Current Condition Onset Date 18 year history Current Complaints Neck pain, face pain, migraines History of Current Condition Pt reports an 18 year history of head, neck, and face pain associated with migraine. Pt reports that her symptoms initially started after moving to [place] from [place] . Migraines used to largely be more symptomatic at certain points during her cycle,but have worsened in frequency over the years. Pt reports that it is mainly pressure and pain directly behind her left eye, but she can just feel like its coming from right back here (cervical spine/base of skull on the left). My neck has just never felt right . Used to get OMT at [facility], but has changed physicians, and is unable to get OMT any longer. Pain is also associated with light sensitivity and nausea. Had some significant health problems last year, reports she was put on a hormone patch , and shortly afterward developed a Pulmonary Emboli, and was experiencing severe anemia and tingling in her limbs. Was severely ill for months, still has a strong emotional response when reviewing her history. Hoping that improving cervical strength and stability will help decrease frequency and severity of migraines. PT-OP-C Subjective Start: 05/18/24 11:23 Freq: Status: Active Protocol: Document 05/20/24 09:45 DCW (Rec: 05/20/24 10:36 DCW [id number]) OP-PT Subjective Patient Comments Patient Comments Pt notes she didn't do her HEP yesterday, her neck was a little sore after her eval, but was able to do her exercises and stretches this morning. Notes she wakes up every morning with a headache, but stretching does seem to diminish it. PT-OP-F Manual Assessment Start: 05/18/24 11:23 Freq: Status: Active Protocol: Document 05/18/24 09:45 DCW (Rec: 05/18/24 14:27 DCW [id number]) Manual Assessments Soft Tissue Assessment Soft Tissue Mobility Assessment Mild tone in cervical musculature, no tenderness Joint Mobility Assessment Joint Mobility Assessment Slight clockwise rotation of C6, mild tenderness with joint mobilization PT-OP-K Range of Motion Start: 05/18/24 11:23 Freq: Status: Active Protocol: Document 05/18/24 09:45 DCW (Rec: 05/18/24 14:27 DCW [id number]) Cervical Spine Range of Motion Cervical Spine Active Degrees Testing Position Sitting Flexion 70 Extension 60 Rotation Left 60 Rotation Right 65 Lateral Flexion Left 50 Lateral Flexion Right 50 PT-OP-L Special Tests Start: 05/18/24 11:23 Freq: Status: Active Protocol: Document 05/18/24 09:45 DCW (Rec: 05/18/24 14:27 DCW [id number]) Special Tests Cervical Spine Special Tests Traction Test Results Negative Spurling's Test Test Results Negative Slump Test Results Negative Passive Neck Flexion Test Results Negative Foraminal Compression Test Results Negative PT-OP-Q Treatments Start: 05/18/24 11:23 Freq: Status: Active Protocol: Document 05/20/24 09:45 DCW (Rec: 05/20/24 10:36 DCW [id number]) Manual Therapy Treatment Consent Patient gave verbal consent for manual Yes treatment Soft Tissue Mobilization Cervical Musculature Body Location Cervical paraspinals, scalenes , upper trap Joint Mobilizations Cervical Joint C4-7 Direction P->A Grade II Body Position Hooklying Neuro Re-Education Treatment Vestibular Rehabilitation X2 Viewing Details Head and target moving in opposite directions Distance From Target Arm's length Speed As tolerated Position Seated X1 Viewing Details Static Target, head turns Distance From Target Arm's length Speed As tolerated Position Seated VOR Retraining Details Target and head moving together Distance From Target Arm's length Speed As tolerated Position Seated PT-OP-T Assessment and Plan Start: 05/18/24 11:23 Freq: Status: Active Protocol: Document 05/20/24 09:45 DCW (Rec: 05/20/24 10:36 DCW [id number]) Physical Therapy Assessment Impairments Impairments Activity Tolerance,Functional Activities,Pain,Sensation, Strength Goals Two Impairment Pt experiences frequent migraines that impact her daily life Jail Goal (LTG) Pt to report reduced frequency of migraines to fewer than four days a week, in oder to improve ability to perform typical household activities. LTG Duration 08/16/24 One Impairment Pt does not have an appropriate home exercise program Short Term Goal (STG) Pt to be independent and compliant with an appropriate HEP STG Duration 06/15/24 Assessment Summary Assessment Trial of some vestibular exercises/VOR retraining in attempt to improve cervical motion. Pt tolerated well, added to HEP. Continue to focus on STM and cervical mobility. Physical Therapy Plan Frequency and Duration Frequency of Treatment 2x/Week Plan of Care Start Date 05/18/24 Plan of Care End Date 08/16/24 Therapeutic Interventions Therapeutic Interventions Home Exercise Program,Manual Therapy,Neuromuscular Re- education,Patient/Caregiver Education,Self-Care/Home Management,Soft Tissue Mobilization,Therapeutic Activities,Therapeutic Exercises Modalities Cold Pack/Ice Massage,Hot Packs,Traction- Mechanical, Ultrasound Next Visit Focus/Plan Next Note Type Treatment Note Next Visit Plan STM, joint mobs, MWM, cervical strengthening
--- NOTE | 2024-05-23 10:43 | PT.OTN ---
Current Diagnoses Cervicogenic headache (05/23/24) Cervicalgia (05/23/24) Physical Therapy Treatment Note PT-OP-A Visit Information Start: 05/18/24 11:23 Freq: Status: Active Protocol: Document 05/23/24 08:09 AB (Rec: 05/23/24 10:43 AB [id number]) Out-Patient Physical Therapy Visit Information Visit Information Visit Type Treatment Note Visit Note Access Code: [email or web address] Visit Start Time 09:04 Visit Stop Time 09:49 Visit Number 3 Number of SEAMLESS HOSIERY KNITTER Visits 1 Evaluation Information Evaluation Date 05/18/24 PT-OP-B Current Condition Start: 05/18/24 11:23 Freq: Status: Active Protocol: Document 05/18/24 09:45 DCW (Rec: 05/18/24 14:27 DCW [id number]) Current Condition History of Current Condition Onset Date 18 year history Current Complaints Neck pain, face pain, migraines History of Current Condition Pt reports an 18 year history of head, neck, and face pain associated with migraine. Pt reports that her symptoms initially started after moving to [place] from [place] . Migraines used to largely be more symptomatic at certain points during her cycle,but have worsened in frequency over the years. Pt reports that it is mainly pressure and pain directly behind her left eye, but she can just feel like its coming from right back here (cervical spine/base of skull on the left). My neck has just never felt right . Used to get OMT at [facility], but has changed physicians, and is unable to get OMT any longer. Pain is also associated with light sensitivity and nausea. Had some significant health problems last year, reports she was put on a hormone patch , and shortly afterward developed a Pulmonary Emboli, and was experiencing severe anemia and tingling in her limbs. Was severely ill for months, still has a strong emotional response when reviewing her history. Hoping that improving cervical strength and stability will help decrease frequency and severity of migraines. PT-OP-C Subjective Start: 05/18/24 11:23 Freq: Status: Active Protocol: Document 05/23/24 08:09 AB (Rec: 05/23/24 10:43 AB [id number]) OP-PT Subjective Patient Comments Patient Comments Maritza reports her neck felt a lot better over the weekend, and has adjusted her pillow which has also helped. Patient rates pain as very minimal start of session, woke up without a headache today or the past free days. PT-OP-F Manual Assessment Start: 05/18/24 11:23 Freq: Status: Active Protocol: Document 05/18/24 09:45 DCW (Rec: 05/18/24 14:27 DCW [id number]) Manual Assessments Soft Tissue Assessment Soft Tissue Mobility Assessment Mild tone in cervical musculature, no tenderness Joint Mobility Assessment Joint Mobility Assessment Slight clockwise rotation of C6, mild tenderness with joint mobilization PT-OP-K Range of Motion Start: 05/18/24 11:23 Freq: Status: Active Protocol: Document 05/18/24 09:45 DCW (Rec: 05/18/24 14:27 DCW [id number]) Cervical Spine Range of Motion Cervical Spine Active Degrees Testing Position Sitting Flexion 70 Extension 60 Rotation Left 60 Rotation Right 65 Lateral Flexion Left 50 Lateral Flexion Right 50 PT-OP-L Special Tests Start: 05/18/24 11:23 Freq: Status: Active Protocol: Document 05/18/24 09:45 DCW (Rec: 05/18/24 14:27 DCW [id number]) Special Tests Cervical Spine Special Tests Traction Test Results Negative Spurling's Test Test Results Negative Slump Test Results Negative Passive Neck Flexion Test Results Negative Foraminal Compression Test Results Negative PT-OP-Q Treatments Start: 05/18/24 11:23 Freq: Status: Active Protocol: Document 05/23/24 08:09 AB (Rec: 05/23/24 10:43 AB [id number]) Therapeutic Exercises Supine Exercises CS rotation on occ float Supine Exercise Name AROM Side bilateral Reps/Minutes 2 min Comments verbal cues to perform slowly in pain free range Chin Tuck Supine Exercise Name Chin Tuck/Head Lift Reps/Minutes X8 Sidelying Exercises UT stretch Sidelying Exercise Name HEP Side bilateral Reps/Minutes 30 sec each side Comments Verbal and visual cues Sitting Exercises Isometrics Sitting Exercise Name Isometric Cervical extension, lateral flexion Side bilateral Resistance Lv 2 Reps/Minutes X8 Other Exercises CS rotation in counter plank position Other Exercise Name HEP Side bilateral Reps/Minutes X 10 Comments Verbal and visual cues Manual Therapy Treatment Consent Patient gave verbal consent for manual Yes treatment Soft Tissue Mobilization Cervical Musculature Body Location Cervical paraspinals, scalenes , upper trap Mobilization Type Cross-Friction,Myofascial Release,Rolling,Sustained Pressure Intensity/Depth Moderate Body Position Sitting Joint Mobilizations Scapular mobilization Joint bilateral Direction into dep and add Grade III Body Position Sidelying Reps/Duration X10 each LE eac direction Cervical Joint Mulligan with movement Direction PA with roation L X 5 Grade II Body Position Hooklying PT-OP-T Assessment and Plan Start: 05/18/24 11:23 Freq: Status: Active Protocol: Document 05/23/24 08:09 AB (Rec: 05/23/24 10:43 AB [id number]) Physical Therapy Assessment Goals Two Impairment Pt experiences frequent migraines that impact her daily life Retirement Goal (LTG) Pt to report reduced frequency of migraines to fewer than four days a week, in oder to improve ability to perform typical household activities. LTG Duration 08/16/24 One Impairment Pt does not have an appropriate home exercise program Short Term Goal (STG) Pt to be independent and compliant with an appropriate HEP STG Duration 06/15/24 Assessment Summary Assessment Maritza reports L side of neck 2/10 pain end of session/ annoying sensation that she usually has, comments she feels looser. Physical Therapy Plan Frequency and Duration Frequency of Treatment 2x/Week Plan of Care Start Date 05/18/24 Plan of Care End Date 08/16/24 Next Visit Focus/Plan Next Note Type Treatment Note Next Visit Plan STM, joint mobs, MWM, cervical strengthening
--- NOTE | 2024-05-26 13:05 | PT.OTN ---
Current Diagnoses Cervicogenic headache (05/26/24) Cervicalgia (05/26/24) Physical Therapy Treatment Note PT-OP-A Visit Information Start: 05/18/24 11:23 Freq: Status: Active Protocol: Document 05/26/24 12:15 DCW (Rec: 05/26/24 13:05 DCW [id number]) Out-Patient Physical Therapy Visit Information Visit Information Visit Type Treatment Note Visit Start Time 12:15 Visit Stop Time 13:00 Visit Number 4 Number of VOLTMETER OPERATOR Visits 0 Evaluation Information Evaluation Date 05/18/24 PT-OP-B Current Condition Start: 05/18/24 11:23 Freq: Status: Active Protocol: Document 05/18/24 09:45 DCW (Rec: 05/18/24 14:27 DCW [id number]) Current Condition History of Current Condition Onset Date 18 year history Current Complaints Neck pain, face pain, migraines History of Current Condition Pt reports an 18 year history of head, neck, and face pain associated with migraine. Pt reports that her symptoms initially started after moving to [place] from [place] . Migraines used to largely be more symptomatic at certain points during her cycle,but have worsened in frequency over the years. Pt reports that it is mainly pressure and pain directly behind her left eye, but she can just feel like its coming from right back here (cervical spine/base of skull on the left). My neck has just never felt right . Used to get OMT at [facility], but has changed physicians, and is unable to get OMT any longer. Pain is also associated with light sensitivity and nausea. Had some significant health problems last year, reports she was put on a hormone patch , and shortly afterward developed a Pulmonary Emboli, and was experiencing severe anemia and tingling in her limbs. Was severely ill for months, still has a strong emotional response when reviewing her history. Hoping that improving cervical strength and stability will help decrease frequency and severity of migraines. PT-OP-C Subjective Start: 05/18/24 11:23 Freq: Status: Active Protocol: Document 05/26/24 12:15 DCW (Rec: 05/26/24 13:05 DCW [id number]) OP-PT Subjective Patient Comments Patient Comments My neck has felt more normal than it has in years. I've been doing my exercises, but today is the first day I woke up with a headache in a while. PT-OP-F Manual Assessment Start: 05/18/24 11:23 Freq: Status: Active Protocol: Document 05/18/24 09:45 DCW (Rec: 05/18/24 14:27 DCW [id number]) Manual Assessments Soft Tissue Assessment Soft Tissue Mobility Assessment Mild tone in cervical musculature, no tenderness Joint Mobility Assessment Joint Mobility Assessment Slight clockwise rotation of C6, mild tenderness with joint mobilization PT-OP-K Range of Motion Start: 05/18/24 11:23 Freq: Status: Active Protocol: Document 05/18/24 09:45 DCW (Rec: 05/18/24 14:27 DCW [id number]) Cervical Spine Range of Motion Cervical Spine Active Degrees Testing Position Sitting Flexion 70 Extension 60 Rotation Left 60 Rotation Right 65 Lateral Flexion Left 50 Lateral Flexion Right 50 PT-OP-L Special Tests Start: 05/18/24 11:23 Freq: Status: Active Protocol: Document 05/18/24 09:45 DCW (Rec: 05/18/24 14:27 DCW [id number]) Special Tests Cervical Spine Special Tests Traction Test Results Negative Spurling's Test Test Results Negative Slump Test Results Negative Passive Neck Flexion Test Results Negative Foraminal Compression Test Results Negative PT-OP-Q Treatments Start: 05/18/24 11:23 Freq: Status: Active Protocol: Document 05/26/24 12:15 DCW (Rec: 05/26/24 13:05 DCW [id number]) Manual Therapy Treatment Consent Patient gave verbal consent for manual Yes treatment Soft Tissue Mobilization Cervical Musculature Body Location Cervical paraspinals, scalenes , upper trap Mobilization Type Strumming,Sustained Pressure, Trigger Point Release Intensity/Depth Moderate Body Position Supine Joint Mobilizations Cervical Joint C4-7 Direction P->A Grade II Body Position Hooklying PT-OP-T Assessment and Plan Start: 05/18/24 11:23 Freq: Status: Active Protocol: Document 05/26/24 12:15 DCW (Rec: 05/26/24 13:05 DCW [id number]) Physical Therapy Assessment Impairments Impairments Activity Tolerance,Functional Activities,Pain,Sensation, Strength Goals Two Impairment Pt experiences frequent migraines that impact her daily life Group Home Goal (LTG) Pt to report reduced frequency of migraines to fewer than four days a week, in oder to improve ability to perform typical household activities. LTG Duration 08/16/24 One Impairment Pt does not have an appropriate home exercise program Short Term Goal (STG) Pt to be independent and compliant with an appropriate HEP STG Duration 06/15/24 Assessment Summary Assessment Noting ROM is much better, shoulders are feeling like they've loosened up. Has been compliant with HEP. Still struggling with getting a correctly sized pillow Physical Therapy Plan Frequency and Duration Frequency of Treatment 2x/Week Plan of Care Start Date 05/18/24 Plan of Care End Date 08/16/24 Therapeutic Interventions Therapeutic Interventions Home Exercise Program,Manual Therapy,Neuromuscular Re- education,Patient/Caregiver Education,Self-Care/Home Management,Soft Tissue Mobilization,Therapeutic Activities,Therapeutic Exercises Modalities Cold Pack/Ice Massage,Hot Packs,Traction- Mechanical, Ultrasound Next Visit Focus/Plan Next Note Type Treatment Note Next Visit Plan STM, joint mobs, MWM, cervical strengthening
--- NOTE | 2024-06-03 10:30 | PT.OTN ---
Current Diagnoses Cervicogenic headache (06/03/24) Cervicalgia (06/03/24) Physical Therapy Treatment Note PT-OP-A Visit Information Start: 05/18/24 11:23 Freq: Status: Active Protocol: Document 06/03/24 09:45 DCW (Rec: 06/03/24 10:29 DCW [id number]) Out-Patient Physical Therapy Visit Information Visit Information Visit Type Treatment Note Visit Start Time 09:45 Visit Stop Time 10:30 Visit Number 5 Number of BRAID CUTTER Visits 0 Evaluation Information Evaluation Date 05/18/24 PT-OP-B Current Condition Start: 05/18/24 11:23 Freq: Status: Active Protocol: Document 05/18/24 09:45 DCW (Rec: 05/18/24 14:27 DCW [id number]) Current Condition History of Current Condition Onset Date 18 year history Current Complaints Neck pain, face pain, migraines History of Current Condition Pt reports an 18 year history of head, neck, and face pain associated with migraine. Pt reports that her symptoms initially started after moving to [place] from [place] . Migraines used to largely be more symptomatic at certain points during her cycle,but have worsened in frequency over the years. Pt reports that it is mainly pressure and pain directly behind her left eye, but she can just feel like its coming from right back here (cervical spine/base of skull on the left). My neck has just never felt right . Used to get OMT at [facility], but has changed physicians, and is unable to get OMT any longer. Pain is also associated with light sensitivity and nausea. Had some significant health problems last year, reports she was put on a hormone patch , and shortly afterward developed a Pulmonary Emboli, and was experiencing severe anemia and tingling in her limbs. Was severely ill for months, still has a strong emotional response when reviewing her history. Hoping that improving cervical strength and stability will help decrease frequency and severity of migraines. PT-OP-C Subjective Start: 05/18/24 11:23 Freq: Status: Active Protocol: Document 06/03/24 09:45 DCW (Rec: 06/03/24 10:29 DCW [id number]) OP-PT Subjective Patient Comments Patient Comments I've been doing my exercises, I'm not having a ton of migraines, still having a little wooziness twith the eye exercises. I've really been working on my posture. PT-OP-F Manual Assessment Start: 05/18/24 11:23 Freq: Status: Active Protocol: Document 05/18/24 09:45 DCW (Rec: 05/18/24 14:27 DCW [id number]) Manual Assessments Soft Tissue Assessment Soft Tissue Mobility Assessment Mild tone in cervical musculature, no tenderness Joint Mobility Assessment Joint Mobility Assessment Slight clockwise rotation of C6, mild tenderness with joint mobilization PT-OP-K Range of Motion Start: 05/18/24 11:23 Freq: Status: Active Protocol: Document 05/18/24 09:45 DCW (Rec: 05/18/24 14:27 DCW [id number]) Cervical Spine Range of Motion Cervical Spine Active Degrees Testing Position Sitting Flexion 70 Extension 60 Rotation Left 60 Rotation Right 65 Lateral Flexion Left 50 Lateral Flexion Right 50 PT-OP-L Special Tests Start: 05/18/24 11:23 Freq: Status: Active Protocol: Document 05/18/24 09:45 DCW (Rec: 05/18/24 14:27 DCW [id number]) Special Tests Cervical Spine Special Tests Traction Test Results Negative Spurling's Test Test Results Negative Slump Test Results Negative Passive Neck Flexion Test Results Negative Foraminal Compression Test Results Negative PT-OP-Q Treatments Start: 05/18/24 11:23 Freq: Status: Active Protocol: Document 06/03/24 09:45 DCW (Rec: 06/03/24 10:29 DCW [id number]) Manual Therapy Treatment Consent Patient gave verbal consent for manual Yes treatment Soft Tissue Mobilization Cervical Musculature Body Location Cervical paraspinals, scalenes , upper trap Mobilization Type Cross-Friction,Myofascial Release,Rolling,Sustained Pressure Intensity/Depth Moderate Body Position Sitting Joint Mobilizations Scapular mobilization Joint bilateral Direction Lat Grade III Body Position Supine PT-OP-T Assessment and Plan Start: 05/18/24 11:23 Freq: Status: Active Protocol: Document 06/03/24 09:45 DCW (Rec: 06/03/24 10:29 DCW [id number]) Physical Therapy Assessment Impairments Impairments Activity Tolerance,Functional Activities,Pain,Sensation, Strength Goals Two Impairment Pt experiences frequent migraines that impact her daily life [employer] Manager Goal (LTG) Pt to report reduced frequency of migraines to fewer than four days a week, in oder to improve ability to perform typical household activities. LTG Duration 08/16/24 One Impairment Pt does not have an appropriate home exercise program Short Term Goal (STG) Pt to be independent and compliant with an appropriate HEP STG Duration 06/15/24 Assessment Summary Assessment Continues to be very happy with progress, severity and frequency of symptoms have greatly diminished. continue to focus on STM and cervical mobs, work on strengthening HEP. Physical Therapy Plan Frequency and Duration Frequency of Treatment 2x/Week Plan of Care Start Date 05/18/24 Plan of Care End Date 08/16/24 Therapeutic Interventions Therapeutic Interventions Home Exercise Program,Manual Therapy,Neuromuscular Re- education,Patient/Caregiver Education,Self-Care/Home Management,Soft Tissue Mobilization,Therapeutic Activities,Therapeutic Exercises Modalities Cold Pack/Ice Massage,Hot Packs,Traction- Mechanical, Ultrasound Next Visit Focus/Plan Next Note Type Treatment Note Next Visit Plan STM, joint mobs, MWM, cervical strengthening
--- NOTE | 2024-06-07 09:33 | PT.OTN ---
Current Diagnoses Cervicogenic headache (06/07/24) Cervicalgia (06/07/24) Physical Therapy Treatment Note PT-OP-A Visit Information Start: 05/18/24 11:23 Freq: Status: Active Protocol: Document 06/07/24 07:24 AB (Rec: 06/07/24 09:32 AB [id number]) Out-Patient Physical Therapy Visit Information Visit Information Visit Type Treatment Note Visit Start Time 08:18 Visit Stop Time 09:00 Visit Number 6 Number of TOURIST INFORMATION ASSISTANT Visits 1 Evaluation Information Evaluation Date 05/18/24 PT-OP-B Current Condition Start: 05/18/24 11:23 Freq: Status: Active Protocol: Document 05/18/24 09:45 DCW (Rec: 05/18/24 14:27 DCW [id number]) Current Condition History of Current Condition Onset Date 18 year history Current Complaints Neck pain, face pain, migraines History of Current Condition Pt reports an 18 year history of head, neck, and face pain associated with migraine. Pt reports that her symptoms initially started after moving to [place] from [place] . Migraines used to largely be more symptomatic at certain points during her cycle,but have worsened in frequency over the years. Pt reports that it is mainly pressure and pain directly behind her left eye, but she can just feel like its coming from right back here (cervical spine/base of skull on the left). My neck has just never felt right . Used to get OMT at [facility], but has changed physicians, and is unable to get OMT any longer. Pain is also associated with light sensitivity and nausea. Had some significant health problems last year, reports she was put on a hormone patch , and shortly afterward developed a Pulmonary Emboli, and was experiencing severe anemia and tingling in her limbs. Was severely ill for months, still has a strong emotional response when reviewing her history. Hoping that improving cervical strength and stability will help decrease frequency and severity of migraines. PT-OP-C Subjective Start: 05/18/24 11:23 Freq: Status: Active Protocol: Document 06/07/24 07:24 AB (Rec: 06/07/24 09:32 AB [id number]) OP-PT Subjective Patient Comments Patient Comments Patient reports she is doing the eye exercises more slowly and less of the exercises that make her more woozy. Patient reports holding the chair with the CS stretches, cleared the eye and neck symptoms. PT-OP-F Manual Assessment Start: 05/18/24 11:23 Freq: Status: Active Protocol: Document 05/18/24 09:45 DCW (Rec: 05/18/24 14:27 DCW [id number]) Manual Assessments Soft Tissue Assessment Soft Tissue Mobility Assessment Mild tone in cervical musculature, no tenderness Joint Mobility Assessment Joint Mobility Assessment Slight clockwise rotation of C6, mild tenderness with joint mobilization PT-OP-K Range of Motion Start: 05/18/24 11:23 Freq: Status: Active Protocol: Document 05/18/24 09:45 DCW (Rec: 05/18/24 14:27 DCW [id number]) Cervical Spine Range of Motion Cervical Spine Active Degrees Testing Position Sitting Flexion 70 Extension 60 Rotation Left 60 Rotation Right 65 Lateral Flexion Left 50 Lateral Flexion Right 50 PT-OP-L Special Tests Start: 05/18/24 11:23 Freq: Status: Active Protocol: Document 05/18/24 09:45 DCW (Rec: 05/18/24 14:27 DCW [id number]) Special Tests Cervical Spine Special Tests Traction Test Results Negative Spurling's Test Test Results Negative Slump Test Results Negative Passive Neck Flexion Test Results Negative Foraminal Compression Test Results Negative PT-OP-Q Treatments Start: 05/18/24 11:23 Freq: Status: Active Protocol: Document 06/07/24 07:24 AB (Rec: 06/07/24 09:32 AB [id number]) Therapeutic Exercises Supine Exercises CS rotation on occ float Supine Exercise Name AROM Side bilateral Reps/Minutes 3 min Comments verbal cues to perform slowly in pain free range Sitting Exercises UT stretch Side bilateral Reps/Minutes 60 sec each side X 2 Comments holding side of chair, VC to avoid tipping trunk Other Exercises CS rotation in counter plank position Other Exercise Name HEP Side bilateral Reps/Minutes 2 min then one min Comments Verbal and visual cues Therapeutic Activity Therapeutic Activity wall posture Comments Verbal cues, patient ed for correct posture then to hold position once stepping away from wall. sidelying and supine sleep positioning Comments sidelying 3 pillow widths under head, one folded under UE and one between knees. folded towels under CS in supine with patient end to fold towel vs roll due to increased length of CS. Manual Therapy Treatment Consent Patient gave verbal consent for manual Yes treatment Soft Tissue Mobilization Cervical Musculature Body Location Cervical paraspinals, scalenes , upper trap Mobilization Type Cross-Friction,Myofascial Release,Rolling,Sustained Pressure Intensity/Depth Moderate Body Position Sitting Joint Mobilizations Scapular mobilization Joint bilateral Direction Lat Grade III Body Position Supine Cervical Joint C2 MWM Grade II Body Position seated Reps/Duration X 5 left PT-OP-T Assessment and Plan Start: 05/18/24 11:23 Freq: Status: Active Protocol: Document 06/07/24 07:24 AB (Rec: 06/07/24 09:32 AB [id number]) Physical Therapy Assessment Goals Two Impairment Pt experiences frequent migraines 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 LTG Duration 08/16/24 One Impairment Pt does not have an appropriate home exercise program Short Term Goal (STG) Pt to be independent and compliant with an appropriate HEP STG Duration 06/15/24 Assessment Summary Assessment Patient reports improved sensation, feels looser, end ROM CS rot left in counter plank post MWM. Physical Therapy Plan Frequency and Duration Frequency of Treatment 2x/Week Plan of Care Start Date 05/18/24 Plan of Care End Date 08/16/24 Next Visit Focus/Plan Next Note Type Treatment Note Next Visit Plan STM, joint mobs, MWM, cervical strengthening
--- NOTE | 2024-06-10 10:42 | PT.OTN ---
Current Diagnoses Cervicogenic headache (06/10/24) Cervicalgia (06/10/24) Physical Therapy Treatment Note PT-OP-A Visit Information Start: 05/18/24 11:23 Freq: Status: Active Protocol: Document 06/10/24 08:07 AB (Rec: 06/10/24 09:02 AB [id number]) Out-Patient Physical Therapy Visit Information Visit Information Visit Type Treatment Note Visit Start Time 08:15 Visit Stop Time 09:01 Visit Number 7 Number of FOOD COUNTER WORKER Visits 2 Evaluation Information Evaluation Date 05/18/24 PT-OP-B Current Condition Start: 05/18/24 11:23 Freq: Status: Active Protocol: Document 05/18/24 09:45 DCW (Rec: 05/18/24 14:27 DCW [id number]) Current Condition History of Current Condition Onset Date 18 year history Current Complaints Neck pain, face pain, migraines History of Current Condition Pt reports an 18 year history of head, neck, and face pain associated with migraine. Pt reports that her symptoms initially started after moving to [place] from [place] . Migraines used to largely be more symptomatic at certain points during her cycle,but have worsened in frequency over the years. Pt reports that it is mainly pressure and pain directly behind her left eye, but she can just feel like its coming from right back here (cervical spine/base of skull on the left). My neck has just never felt right . Used to get OMT at [facility], but has changed physicians, and is unable to get OMT any longer. Pain is also associated with light sensitivity and nausea. Had some significant health problems last year, reports she was put on a hormone patch , and shortly afterward developed a Pulmonary Emboli, and was experiencing severe anemia and tingling in her limbs. Was severely ill for months, still has a strong emotional response when reviewing her history. Hoping that improving cervical strength and stability will help decrease frequency and severity of migraines. PT-OP-C Subjective Start: 05/18/24 11:23 Freq: Status: Active Protocol: Document 06/10/24 08:07 AB (Rec: 06/10/24 09:02 AB [id number]) OP-PT Subjective Patient Comments Patient Comments Patient reports area of discomfort L CS doesn't feel bad this morning, attributes possibly to pillow set up last night. Patient reports she did have a headache [place], but does overall has better ability to turn head in car when scanning for traffic. PT-OP-F Manual Assessment Start: 05/18/24 11:23 Freq: Status: Active Protocol: Document 05/18/24 09:45 DCW (Rec: 05/18/24 14:27 DCW [id number]) Manual Assessments Soft Tissue Assessment Soft Tissue Mobility Assessment Mild tone in cervical musculature, no tenderness Joint Mobility Assessment Joint Mobility Assessment Slight clockwise rotation of C6, mild tenderness with joint mobilization PT-OP-K Range of Motion Start: 05/18/24 11:23 Freq: Status: Active Protocol: Document 05/18/24 09:45 DCW (Rec: 05/18/24 14:27 DCW [id number]) Cervical Spine Range of Motion Cervical Spine Active Degrees Testing Position Sitting Flexion 70 Extension 60 Rotation Left 60 Rotation Right 65 Lateral Flexion Left 50 Lateral Flexion Right 50 PT-OP-L Special Tests Start: 05/18/24 11:23 Freq: Status: Active Protocol: Document 05/18/24 09:45 DCW (Rec: 05/18/24 14:27 DCW [id number]) Special Tests Cervical Spine Special Tests Traction Test Results Negative Spurling's Test Test Results Negative Slump Test Results Negative Passive Neck Flexion Test Results Negative Foraminal Compression Test Results Negative PT-OP-Q Treatments Start: 05/18/24 11:23 Freq: Status: Active Protocol: Document 06/10/24 08:07 AB (Rec: 06/10/24 09:02 AB [id number]) Therapeutic Exercises Supine Exercises CS rotation on occ float Supine Exercise Name AROM Side bilateral Reps/Minutes 3 min Comments verbal cues to perform slowly in pain free range Chin Tuck Supine Exercise Name Chin Tuck/Head Lift Reps/Minutes X8 3 sec hold with lift Sidelying Exercises open book Sidelying Exercise Name next session Side bilateral Sitting Exercises UT stretch Side bilateral Reps/Minutes 60 sec each side X 2 Comments holding side of chair, VC to avoid tipping trunk Isometrics Sitting Exercise Name Isometric Cervical extension, lateral flexion Side bilateral Resistance Lv 3 Reps/Minutes X10 Other Exercises CS rotation in counter plank position Other Exercise Name HEP Side bilateral Reps/Minutes X10 Comments Verbal and visual cues Manual Therapy Treatment Consent Patient gave verbal consent for manual Yes treatment Soft Tissue Mobilization Cervical Musculature Body Location Cervical paraspinals, scalenes , upper trap Mobilization Type Cross-Friction,Myofascial Release,Rolling,Sustained Pressure Intensity/Depth Moderate Body Position Sitting Joint Mobilizations Scapular mobilization Joint bilateral Direction Lat Grade III Body Position Supine PT-OP-T Assessment and Plan Start: 05/18/24 11:23 Freq: Status: Active Protocol: Document 06/10/24 08:07 AB (Rec: 06/10/24 09:02 AB [id number]) Physical Therapy Assessment Goals Two Impairment Pt experiences frequent migraines that impact her daily life Prison Goal (LTG) Pt to report reduced frequency of migraines to fewer than four days a week, in oder to improve ability to perform typical household activities. LTG Duration 08/16/24 One Impairment Pt does not have an appropriate home exercise program Short Term Goal (STG) Pt to be independent and compliant with an appropriate HEP STG Duration 06/15/24 Assessment Summary Assessment Progressed to level 3 band for isometrics this session, with good tolerance. Patient into session with reports of decreased difficulty scanning for traffic. Physical Therapy Plan Frequency and Duration Frequency of Treatment 2x/Week Plan of Care Start Date 05/18/24 Plan of Care End Date 08/16/24 Next Visit Focus/Plan Next Note Type Treatment Note Next Visit Plan STM, joint mobs, MWM, cervical strengthening
--- NOTE | 2024-06-15 09:59 | PT.OTN ---
Current Diagnoses Cervicogenic headache (06/15/24) Cervicalgia (06/15/24) Physical Therapy Treatment Note PT-OP-A Visit Information Start: 05/18/24 11:23 Freq: Status: Active Protocol: Document 06/15/24 07:20 AB (Rec: 06/15/24 09:59 AB [id number]) Out-Patient Physical Therapy Visit Information Visit Information Visit Type Treatment Note Visit Start Time 08:16 Visit Stop Time 09:01 Visit Number 8 Number of OFFICE SWEEPER Visits 3 Evaluation Information Evaluation Date 05/18/24 PT-OP-B Current Condition Start: 05/18/24 11:23 Freq: Status: Active Protocol: Document 05/18/24 09:45 DCW (Rec: 05/18/24 14:27 DCW [id number]) Current Condition History of Current Condition Onset Date 18 year history Current Complaints Neck pain, face pain, migraines History of Current Condition Pt reports an 18 year history of head, neck, and face pain associated with migraine. Pt reports that her symptoms initially started after moving to [place] from [place] . Migraines used to largely be more symptomatic at certain points during her cycle,but have worsened in frequency over the years. Pt reports that it is mainly pressure and pain directly behind her left eye, but she can just feel like its coming from right back here (cervical spine/base of skull on the left). My neck has just never felt right . Used to get OMT at [facility], but has changed physicians, and is unable to get OMT any longer. Pain is also associated with light sensitivity and nausea. Had some significant health problems last year, reports she was put on a hormone patch , and shortly afterward developed a Pulmonary Emboli, and was experiencing severe anemia and tingling in her limbs. Was severely ill for months, still has a strong emotional response when reviewing her history. Hoping that improving cervical strength and stability will help decrease frequency and severity of migraines. PT-OP-C Subjective Start: 05/18/24 11:23 Freq: Status: Active Protocol: Document 06/15/24 07:20 AB (Rec: 06/15/24 09:59 AB [id number]) OP-PT Subjective Patient Comments Patient Comments Patient reports she has been doing her exercises, had one day of a headache/migraine. Patient reports the chin tuck helps the headache. Patient reports she is using the new band for ex, continues to get woozy with the eye exercise with the card only able to perform about 2X then has to stop. PT-OP-F Manual Assessment Start: 05/18/24 11:23 Freq: Status: Active Protocol: Document 05/18/24 09:45 DCW (Rec: 05/18/24 14:27 DCW [id number]) Manual Assessments Soft Tissue Assessment Soft Tissue Mobility Assessment Mild tone in cervical musculature, no tenderness Joint Mobility Assessment Joint Mobility Assessment Slight clockwise rotation of C6, mild tenderness with joint mobilization PT-OP-K Range of Motion Start: 05/18/24 11:23 Freq: Status: Active Protocol: Document 05/18/24 09:45 DCW (Rec: 05/18/24 14:27 DCW [id number]) Cervical Spine Range of Motion Cervical Spine Active Degrees Testing Position Sitting Flexion 70 Extension 60 Rotation Left 60 Rotation Right 65 Lateral Flexion Left 50 Lateral Flexion Right 50 PT-OP-L Special Tests Start: 05/18/24 11:23 Freq: Status: Active Protocol: Document 05/18/24 09:45 DCW (Rec: 05/18/24 14:27 DCW [id number]) Special Tests Cervical Spine Special Tests Traction Test Results Negative Spurling's Test Test Results Negative Slump Test Results Negative Passive Neck Flexion Test Results Negative Foraminal Compression Test Results Negative PT-OP-Q Treatments Start: 05/18/24 11:23 Freq: Status: Active Protocol: Document 06/15/24 07:20 AB (Rec: 06/15/24 09:59 AB [id number]) Therapeutic Exercises Supine Exercises CS rotation on occ float Supine Exercise Name AROM Side bilateral Reps/Minutes 3 min Comments verbal cues to perform slowly in pain free range Chin Tuck Supine Exercise Name Chin Tuck/Head Lift Reps/Minutes X8 3 sec hold with lift Sidelying Exercises open book Side bilateral Reps/Minutes X5 for 3 breath hold Comments verbal cues Sitting Exercises UT stretch Side bilateral Reps/Minutes 60 sec each side X 1 Comments holding side of chair, +VC to avoid tipping trunk Standing Exercises Pec stretch Standing Exercise Name Hands behind head Reps/Minutes 60 sec X 1 Comments Verbal and visual cues Other Exercises UE lift in counter plank Reps/Minutes X 5 each UE Comments verbal and visual cues CS rotation in counter plank position Other Exercise Name HEP Side bilateral Reps/Minutes X10 Comments Verbal and visual cues Manual Therapy Treatment Consent Patient gave verbal consent for manual Yes treatment Soft Tissue Mobilization Cervical Musculature Body Location Cervical paraspinals, scalenes , upper trap Mobilization Type Cross-Friction,Myofascial Release,Rolling,Sustained Pressure Intensity/Depth Moderate Body Position Sitting Joint Mobilizations Scapular mobilization Joint bilateral Direction Lat Grade III Body Position Supine PT-OP-T Assessment and Plan Start: 05/18/24 11:23 Freq: Status: Active Protocol: Document 06/15/24 07:20 AB (Rec: 06/15/24 09:59 AB [id number]) Physical Therapy Assessment Goals Two Impairment Pt experiences frequent migraines that impact her daily life Compensation Manager Goal (LTG) Pt to report reduced frequency of migraines to fewer than four days a week, in oder to improve ability to perform typical household activities. LTG Duration 08/16/24 One Impairment Pt does not have an appropriate home exercise program Short Term Goal (STG) Pt to be independent and compliant with an appropriate HEP STG Duration 06/15/24 Assessment Summary Assessment Good jumana to open book stretch, dec jumana end of pec stretch hold this session. Physical Therapy Plan Frequency and Duration Frequency of Treatment 2x/Week Plan of Care Start Date 05/18/24 Plan of Care End Date 08/16/24 Next Visit Focus/Plan Next Note Type Treatment Note Next Visit Plan STM, joint mobs, MWM, cervical strengthening
--- NOTE | 2024-06-21 10:35 | PT.OTN ---
Current Diagnoses Cervicogenic headache (06/21/24) Cervicalgia (06/21/24) Physical Therapy Treatment Note PT-OP-A Visit Information Start: 05/18/24 11:23 Freq: Status: Active Protocol: Document 06/21/24 09:45 DCW (Rec: 06/21/24 10:34 DCW [id number]) Out-Patient Physical Therapy Visit Information Visit Information Visit Type Treatment Note Visit Start Time 09:45 Visit Stop Time 10:30 Visit Number 9 Number of DYEING MACHINE TENDER Visits 0 Evaluation Information Evaluation Date 05/18/24 PT-OP-B Current Condition Start: 05/18/24 11:23 Freq: Status: Active Protocol: Document 05/18/24 09:45 DCW (Rec: 05/18/24 14:27 DCW [id number]) Current Condition History of Current Condition Onset Date 18 year history Current Complaints Neck pain, face pain, migraines History of Current Condition Pt reports an 18 year history of head, neck, and face pain associated with migraine. Pt reports that her symptoms initially started after moving to [place] from [place] . Migraines used to largely be more symptomatic at certain points during her cycle,but have worsened in frequency over the years. Pt reports that it is mainly pressure and pain directly behind her left eye, but she can just feel like its coming from right back here (cervical spine/base of skull on the left). My neck has just never felt right . Used to get OMT at [facility], but has changed physicians, and is unable to get OMT any longer. Pain is also associated with light sensitivity and nausea. Had some significant health problems last year, reports she was put on a hormone patch , and shortly afterward developed a Pulmonary Emboli, and was experiencing severe anemia and tingling in her limbs. Was severely ill for months, still has a strong emotional response when reviewing her history. Hoping that improving cervical strength and stability will help decrease frequency and severity of migraines. PT-OP-C Subjective Start: 05/18/24 11:23 Freq: Status: Active Protocol: Document 06/21/24 09:45 DCW (Rec: 06/21/24 10:34 DCW [id number]) OP-PT Subjective Patient Comments Patient Comments Pt reports she wakes up occasionally with headaches, but exercises help immediately , her neck has felt quite a bit better overall. PT-OP-F Manual Assessment Start: 05/18/24 11:23 Freq: Status: Active Protocol: Document 05/18/24 09:45 DCW (Rec: 05/18/24 14:27 DCW [id number]) Manual Assessments Soft Tissue Assessment Soft Tissue Mobility Assessment Mild tone in cervical musculature, no tenderness Joint Mobility Assessment Joint Mobility Assessment Slight clockwise rotation of C6, mild tenderness with joint mobilization PT-OP-K Range of Motion Start: 05/18/24 11:23 Freq: Status: Active Protocol: Document 05/18/24 09:45 DCW (Rec: 05/18/24 14:27 DCW [id number]) Cervical Spine Range of Motion Cervical Spine Active Degrees Testing Position Sitting Flexion 70 Extension 60 Rotation Left 60 Rotation Right 65 Lateral Flexion Left 50 Lateral Flexion Right 50 PT-OP-L Special Tests Start: 05/18/24 11:23 Freq: Status: Active Protocol: Document 05/18/24 09:45 DCW (Rec: 05/18/24 14:27 DCW [id number]) Special Tests Cervical Spine Special Tests Traction Test Results Negative Spurling's Test Test Results Negative Slump Test Results Negative Passive Neck Flexion Test Results Negative Foraminal Compression Test Results Negative PT-OP-Q Treatments Start: 05/18/24 11:23 Freq: Status: Active Protocol: Document 06/21/24 09:45 DCW (Rec: 06/21/24 10:34 DCW [id number]) Therapeutic Exercises Supine Exercises UT Stretch Supine Exercise Name UT Stretch Side right Manual Therapy Treatment Consent Patient gave verbal consent for manual Yes treatment Soft Tissue Mobilization Cervical Musculature Body Location Cervical paraspinals, scalenes , upper trap Mobilization Type Cross-Friction,Myofascial Release,Sustained Pressure Intensity/Depth Moderate Body Position Supine Joint Mobilizations Scapular mobilization Joint bilateral Direction Lat Grade III Body Position Supine Neuro Re-Education Treatment Vestibular Rehabilitation Pencil Push-ups Details Pencil Push-ups Distance From Target Varied Position Seated X2 Viewing Details Head and target moving in opposite directions Distance From Target Arm's length Speed As tolerated Position Seated PT-OP-T Assessment and Plan Start: 05/18/24 11:23 Freq: Status: Active Protocol: Document 06/21/24 09:45 DCW (Rec: 06/21/24 10:34 DCW [id number]) Physical Therapy Assessment Impairments Impairments Activity Tolerance,Functional Activities,Pain,Sensation, Strength Goals Two Impairment Pt experiences frequent migraines that impact her daily life Group Home Goal (LTG) Pt to report reduced frequency of migraines to fewer than four days a week, in oder to improve ability to perform typical household activities. LTG Duration 08/16/24 One Impairment Pt does not have an appropriate home exercise program Short Term Goal (STG) Pt to be independent and compliant with an appropriate HEP STG Duration 06/15/24 Assessment Summary Assessment Pt continues to show good improvements, decreasing frequency of headaches, and improved ability to control pain when they do begin. Continue to focus on manual cervical treatment, cervical strengthening, and oculomotor exercises. Physical Therapy Plan Frequency and Duration Frequency of Treatment 2x/Week Plan of Care Start Date 05/18/24 Plan of Care End Date 08/16/24 Therapeutic Interventions Therapeutic Interventions Home Exercise Program,Manual Therapy,Neuromuscular Re- education,Patient/Caregiver Education,Self-Care/Home Management,Soft Tissue Mobilization,Therapeutic Activities,Therapeutic Exercises Modalities Cold Pack/Ice Massage,Hot Packs,Traction- Mechanical, Ultrasound Next Visit Focus/Plan Next Note Type Treatment Note Next Visit Plan STM, joint mobs, MWM, cervical strengthening
--- NOTE | 2024-06-23 10:41 | PT.OTN ---
Current Diagnoses Cervicogenic headache (06/23/24) Cervicalgia (06/23/24) Physical Therapy Treatment Note PT-OP-A Visit Information Start: 05/18/24 11:23 Freq: Status: Active Protocol: Document 06/23/24 07:25 AB (Rec: 06/23/24 10:26 AB [id number]) Out-Patient Physical Therapy Visit Information Visit Information Visit Type Treatment Note Visit Start Time 09:00 Visit Stop Time 09:03 Visit Number 10 Number of PROGRAM PRODUCTION SPECIALIST Visits 1 Evaluation Information Evaluation Date 05/18/24 PT-OP-B Current Condition Start: 05/18/24 11:23 Freq: Status: Active Protocol: Document 05/18/24 09:45 DCW (Rec: 05/18/24 14:27 DCW [id number]) Current Condition History of Current Condition Onset Date 18 year history Current Complaints Neck pain, face pain, migraines History of Current Condition Pt reports an 18 year history of head, neck, and face pain associated with migraine. Pt reports that her symptoms initially started after moving to [place] from [place] . Migraines used to largely be more symptomatic at certain points during her cycle,but have worsened in frequency over the years. Pt reports that it is mainly pressure and pain directly behind her left eye, but she can just feel like its coming from right back here (cervical spine/base of skull on the left). My neck has just never felt right . Used to get OMT at [facility], but has changed physicians, and is unable to get OMT any longer. Pain is also associated with light sensitivity and nausea. Had some significant health problems last year, reports she was put on a hormone patch , and shortly afterward developed a Pulmonary Emboli, and was experiencing severe anemia and tingling in her limbs. Was severely ill for months, still has a strong emotional response when reviewing her history. Hoping that improving cervical strength and stability will help decrease frequency and severity of migraines. PT-OP-C Subjective Start: 05/18/24 11:23 Freq: Status: Active Protocol: Document 06/23/24 07:25 AB (Rec: 06/23/24 10:26 AB [id number]) OP-PT Subjective Patient Comments Patient Comments Patient reports she has been stressed, life events. Patient reports performing HEP, new exercises, pencil exercises. Patient reports she continues to try different pillows. Patient rates pain L neck 0/10 start of session. PT-OP-F Manual Assessment Start: 05/18/24 11:23 Freq: Status: Active Protocol: Document 05/18/24 09:45 DCW (Rec: 05/18/24 14:27 DCW [id number]) Manual Assessments Soft Tissue Assessment Soft Tissue Mobility Assessment Mild tone in cervical musculature, no tenderness Joint Mobility Assessment Joint Mobility Assessment Slight clockwise rotation of C6, mild tenderness with joint mobilization PT-OP-K Range of Motion Start: 05/18/24 11:23 Freq: Status: Active Protocol: Document 05/18/24 09:45 DCW (Rec: 05/18/24 14:27 DCW [id number]) Cervical Spine Range of Motion Cervical Spine Active Degrees Testing Position Sitting Flexion 70 Extension 60 Rotation Left 60 Rotation Right 65 Lateral Flexion Left 50 Lateral Flexion Right 50 PT-OP-L Special Tests Start: 05/18/24 11:23 Freq: Status: Active Protocol: Document 05/18/24 09:45 DCW (Rec: 05/18/24 14:27 DCW [id number]) Special Tests Cervical Spine Special Tests Traction Test Results Negative Spurling's Test Test Results Negative Slump Test Results Negative Passive Neck Flexion Test Results Negative Foraminal Compression Test Results Negative PT-OP-Q Treatments Start: 05/18/24 11:23 Freq: Status: Active Protocol: Document 06/23/24 07:25 AB (Rec: 06/23/24 10:26 AB [id number]) Therapeutic Exercises Supine Exercises CS rotation on occ float Supine Exercise Name AROM Side bilateral Reps/Minutes 3 min Comments verbal cues to perform slowly in pain free range Standing Exercises Pec stretch Standing Exercise Name Hands behind head, single UE at wall Reps/Minutes 60 sec X 1 each UE on wall, X 1 30 sec hands behind head Comments Verbal and visual cues Other Exercises CS rotation in counter plank position Other Exercise Name HEP Side bilateral Reps/Minutes X10 Comments Verbal and visual cues Manual Therapy Treatment Consent Patient gave verbal consent for manual Yes treatment Soft Tissue Mobilization Cervical Musculature Body Location B Cervical paraspi, scalenes, upper trap, also lats, post cuff this sessi Mobilization Type Cross-Friction,Myofascial Release,Sustained Pressure Intensity/Depth Moderate Body Position Supine Joint Mobilizations Scapular mobilization Joint bilateral Direction Lat Grade III Body Position Supine Cervical Joint C5 and C 7 MWM Grade II Body Position seated Reps/Duration X 6 each left PT-OP-T Assessment and Plan Start: 05/18/24 11:23 Freq: Status: Active Protocol: Document 06/23/24 07:25 AB (Rec: 06/23/24 10:26 AB [id number]) Physical Therapy Assessment Goals Two Impairment Pt experiences frequent migraines that impact her daily life Prison Goal (LTG) Pt to report reduced frequency of migraines to fewer than four days a week, in oder to improve ability to perform typical household activities. LTG Duration 08/16/24 One Impairment Pt does not have an appropriate home exercise program Short Term Goal (STG) Pt to be independent and compliant with an appropriate HEP STG Duration 06/15/24 Assessment Summary Assessment Patient reports neck feels better, with AROM CS rotation. Physical Therapy Plan Frequency and Duration Frequency of Treatment 2x/Week Plan of Care Start Date 05/18/24 Plan of Care End Date 08/16/24 Next Visit Focus/Plan Next Note Type Treatment Note Next Visit Plan STM, joint mobs, MWM, cervical strengthening
--- NOTE | 2024-06-28 08:52 | PT.OTN ---
Current Diagnoses Cervicogenic headache (06/28/24) Cervicalgia (06/28/24) Physical Therapy Treatment Note PT-OP-A Visit Information Start: 05/18/24 11:23 Freq: Status: Active Protocol: Document 06/28/24 07:27 AB (Rec: 06/28/24 08:50 AB Laptop) Out-Patient Physical Therapy Visit Information Visit Information Visit Type Treatment Note Visit Start Time 08:18 Visit Stop Time 08:42 Visit Number 11 Number of HOT MILL WORKER Visits 2 Evaluation Information Evaluation Date 05/18/24 PT-OP-B Current Condition Start: 05/18/24 11:23 Freq: Status: Active Protocol: Document 05/18/24 09:45 DCW (Rec: 05/18/24 14:27 DCW [id number]) Current Condition History of Current Condition Onset Date 18 year history Current Complaints Neck pain, face pain, migraines History of Current Condition Pt reports an 18 year history of head, neck, and face pain associated with migraine. Pt reports that her symptoms initially started after moving to [place] from [place] . Migraines used to largely be more symptomatic at certain points during her cycle,but have worsened in frequency over the years. Pt reports that it is mainly pressure and pain directly behind her left eye, but she can just feel like its coming from right back here (cervical spine/base of skull on the left). My neck has just never felt right . Used to get OMT at [facility], but has changed physicians, and is unable to get OMT any longer. Pain is also associated with light sensitivity and nausea. Had some significant health problems last year, reports she was put on a hormone patch , and shortly afterward developed a Pulmonary Emboli, and was experiencing severe anemia and tingling in her limbs. Was severely ill for months, still has a strong emotional response when reviewing her history. Hoping that improving cervical strength and stability will help decrease frequency and severity of migraines. PT-OP-C Subjective Start: 05/18/24 11:23 Freq: Status: Active Protocol: Document 06/28/24 07:27 AB (Rec: 06/28/24 08:50 AB Laptop) OP-PT Subjective Patient Comments Patient Comments Patient reports her neck is better than it has been in years, less popping and cracking, still struggles with turning L. Patient reports has had no headaches since last session. Patient reports she has to leave by 8:40 for Son's medical appt. Patient reports increased tingling ( arms and legs )post pec stretch on wall. PT-OP-F Manual Assessment Start: 05/18/24 11:23 Freq: Status: Active Protocol: Document 05/18/24 09:45 DCW (Rec: 05/18/24 14:27 DCW [id number]) Manual Assessments Soft Tissue Assessment Soft Tissue Mobility Assessment Mild tone in cervical musculature, no tenderness Joint Mobility Assessment Joint Mobility Assessment Slight clockwise rotation of C6, mild tenderness with joint mobilization PT-OP-K Range of Motion Start: 05/18/24 11:23 Freq: Status: Active Protocol: Document 05/18/24 09:45 DCW (Rec: 05/18/24 14:27 DCW [id number]) Cervical Spine Range of Motion Cervical Spine Active Degrees Testing Position Sitting Flexion 70 Extension 60 Rotation Left 60 Rotation Right 65 Lateral Flexion Left 50 Lateral Flexion Right 50 PT-OP-L Special Tests Start: 05/18/24 11:23 Freq: Status: Active Protocol: Document 05/18/24 09:45 DCW (Rec: 05/18/24 14:27 DCW [id number]) Special Tests Cervical Spine Special Tests Traction Test Results Negative Spurling's Test Test Results Negative Slump Test Results Negative Passive Neck Flexion Test Results Negative Foraminal Compression Test Results Negative PT-OP-Q Treatments Start: 05/18/24 11:23 Freq: Status: Active Protocol: Document 06/28/24 07:27 AB (Rec: 06/28/24 08:50 AB Laptop) Therapeutic Exercises Supine Exercises CS rotation on occ float Supine Exercise Name AROM Side bilateral Reps/Minutes 2 min Comments verbal cues to perform slowly in pain free range Manual Therapy Treatment Consent Patient gave verbal consent for manual Yes treatment Soft Tissue Mobilization Cervical Musculature Body Location B Cervical paraspi, scalenes, upper trap, pec Mobilization Type Cross-Friction,Myofascial Release,Sustained Pressure Intensity/Depth Moderate Body Position Supine Comments Positioned in chest retail interior designer PT-OP-T Assessment and Plan Start: 05/18/24 11:23 Freq: Status: Active Protocol: Document 06/28/24 07:27 AB (Rec: 06/28/24 08:50 AB Laptop) Physical Therapy Assessment Goals Two Impairment Pt experiences frequent migraines that impact her daily life [facility]ci Goal (LTG) Pt to report reduced frequency of migraines to fewer than four days a week, in oder to improve ability to perform typical household activities. LTG Duration 08/16/24 One Impairment Pt does not have an appropriate home exercise program Short Term Goal (STG) Pt to be independent and compliant with an appropriate HEP STG Duration 06/15/24 Assessment Summary Assessment Patient reports having no pain . This session limited by time constraints due to Patient having to make appt/take son to appointment. Patient ed verbally mech of vacuuming due to patient reports only able to vacuum while on knees. Physical Therapy Plan Frequency and Duration Frequency of Treatment 2x/Week Plan of Care Start Date 05/18/24 Plan of Care End Date 08/16/24 Next Visit Focus/Plan Next Note Type Progress Note Next Visit Plan STM, joint mobs, MWM, cervical strengthening Possibly review vacuuming tech
--- NOTE | 2024-06-30 11:31 | PT.OTN ---
Current Diagnoses Cervicogenic headache (06/30/24) Cervicalgia (06/30/24) Physical Therapy Treatment Note PT-OP-A Visit Information Start: 05/18/24 11:23 Freq: Status: Active Protocol: Document 06/30/24 10:47 DCW (Rec: 06/30/24 11:31 DCW [id number]) Out-Patient Physical Therapy Visit Information Visit Information Visit Type Treatment Note Visit Start Time 10:47 Visit Stop Time 11:30 Visit Number 12 Number of CARRIAGE SETTER Visits 0 Evaluation Information Evaluation Date 05/18/24 PT-OP-B Current Condition Start: 05/18/24 11:23 Freq: Status: Active Protocol: Document 05/18/24 09:45 DCW (Rec: 05/18/24 14:27 DCW [id number]) Current Condition History of Current Condition Onset Date 18 year history Current Complaints Neck pain, face pain, migraines History of Current Condition Pt reports an 18 year history of head, neck, and face pain associated with migraine. Pt reports that her symptoms initially started after moving to [place] from [place] . Migraines used to largely be more symptomatic at certain points during her cycle,but have worsened in frequency over the years. Pt reports that it is mainly pressure and pain directly behind her left eye, but she can just feel like its coming from right back here (cervical spine/base of skull on the left). My neck has just never felt right . Used to get OMT at [facility], but has changed physicians, and is unable to get OMT any longer. Pain is also associated with light sensitivity and nausea. Had some significant health problems last year, reports she was put on a hormone patch , and shortly afterward developed a Pulmonary Emboli, and was experiencing severe anemia and tingling in her limbs. Was severely ill for months, still has a strong emotional response when reviewing her history. Hoping that improving cervical strength and stability will help decrease frequency and severity of migraines. PT-OP-C Subjective Start: 05/18/24 11:23 Freq: Status: Active Protocol: Document 06/30/24 10:47 DCW (Rec: 06/30/24 11:31 DCW [id number]) OP-PT Subjective Patient Comments Patient Comments When I evaluate my neck, it has been feeling so much better and more like a normal neck. I haven't had any migraines or headaches over the last two weeks. PT-OP-F Manual Assessment Start: 05/18/24 11:23 Freq: Status: Active Protocol: Document 05/18/24 09:45 DCW (Rec: 05/18/24 14:27 DCW [id number]) Manual Assessments Soft Tissue Assessment Soft Tissue Mobility Assessment Mild tone in cervical musculature, no tenderness Joint Mobility Assessment Joint Mobility Assessment Slight clockwise rotation of C6, mild tenderness with joint mobilization PT-OP-K Range of Motion Start: 05/18/24 11:23 Freq: Status: Active Protocol: Document 05/18/24 09:45 DCW (Rec: 05/18/24 14:27 DCW [id number]) Cervical Spine Range of Motion Cervical Spine Active Degrees Testing Position Sitting Flexion 70 Extension 60 Rotation Left 60 Rotation Right 65 Lateral Flexion Left 50 Lateral Flexion Right 50 PT-OP-L Special Tests Start: 05/18/24 11:23 Freq: Status: Active Protocol: Document 05/18/24 09:45 DCW (Rec: 05/18/24 14:27 DCW [id number]) Special Tests Cervical Spine Special Tests Traction Test Results Negative Spurling's Test Test Results Negative Slump Test Results Negative Passive Neck Flexion Test Results Negative Foraminal Compression Test Results Negative PT-OP-Q Treatments Start: 05/18/24 11:23 Freq: Status: Active Protocol: Document 06/30/24 10:47 DCW (Rec: 06/30/24 11:31 DCW [id number]) Manual Therapy Treatment Consent Patient gave verbal consent for manual Yes treatment Soft Tissue Mobilization Cervical Musculature Body Location B Cervical paraspi, scalenes, upper trap, pec Mobilization Type Cross-Friction,Myofascial Release,Sustained Pressure Intensity/Depth Moderate Body Position Supine Comments Positioned in chest telecommunicator PT-OP-T Assessment and Plan Start: 05/18/24 11:23 Freq: Status: Active Protocol: Document 06/30/24 10:47 DCW (Rec: 06/30/24 11:31 DCW [id number]) Physical Therapy Assessment Impairments Impairments Activity Tolerance,Functional Activities,Pain,Sensation, Strength Goals Two Impairment Pt experiences frequent migraines that impact her daily life Mcfp Goal (LTG) Pt to report reduced frequency of migraines to fewer than four days a week, in oder to improve ability to perform typical household activities. LTG Duration Met One Impairment Pt does not have an appropriate home exercise program Short Term Goal (STG) Pt to be independent and compliant with an appropriate HEP STG Duration Met Progress Towards Goals Progress Towards Goals Goals Met Assessment Summary Assessment Pt doing much better overall, very happy with her current progress, and has met all goals. Does admit to being very nervous regarding discharge, due to the chronic nature of her symptoms, worried about migraines and cervical dysfunction returning . Committed to compliance with HEP. Pt will be discharged from skilled therapy at this time. Physical Therapy Plan Frequency and Duration Frequency of Treatment 2x/Week Plan of Care Start Date 05/18/24 Plan of Care End Date 08/16/24 Discharge Physical Therapy Discharge Reasons Goals Met Next Visit Focus/Plan Next Note Type Discharge Summary
== END 2024-07-01 12:45 | disposition home or self-care (01) ==
LOC: PHYS 10:45
PROVIDERS: Family Provider Family Medicine; PCP Family Medicine; Referring Provider Family Medicine; Visit Provider Family Medicine
DX: M54.2 Cervicalgia (principal); G44.86 Cervicogenic headache
CPT/HCPCS: 97110; 97112; 97140; 97163; 97530